=== PATIENT | female | born 1990 | race African-American/Black ===

== ENCOUNTER 2016-10-26 12:04 | Emergency (ER) | payer MEDICAID ==
--- NOTE | 2016-10-26 12:42 | ER Document Report ---
ED Medical Screen (RME) - General Stated Complaint: HEAD ACHE Notes: Patient is a 26-year-old female presents emergency Department complaining of soreness, coughing, headaches, nasal drainage, body aches symptoms started 3 days (-)influenza vaccine I have greeted and performed a rapid initial assessment of this patient. A comprehensive ED assessment and evaluation of the patient, analysis of test results and completion of the medical decision making process will be conducted by additional ED providers. TRAVEL OUTSIDE OF THE [place] IN LAST 30 DAYS: No - Related Data Allergies/Adverse Reactions: penicillin G benzathine [From Bicillin C-R] Allergy (Verified 09/07/16 08:25) penicillin G procaine [From Bicillin C-R] Allergy (Verified 09/07/16 08:25) Past Medical History Past Surgical History: Reports: Hx Section - Immunizations Immunizations up to date: Yes Hx Diphtheria, Pertussis, Tetanus Vaccination: Yes Physical Exam - Vital signs Vitals: Temp Pulse Resp BP Pulse Ox 97.5 F 72 18 107/62 100 10/26/16 12:38 10/26/16 12:38 10/26/16 12:38 10/26/16 12:38 10/26/16 12:38 Course - Vital Signs Vital signs: Temp Pulse Resp BP Pulse Ox 97.5 F 72 18 107/62 100 10/26/16 12:38 10/26/16 12:38 10/26/16 12:38 10/26/16 12:38 10/26/16 12:38
[2016-10-26 14:11] LABS: APPEARANCE,URINE SLIGHTLY-CLOUDY; BILIRUBIN,URINE NEGATIVE (NEGATIVE); GLUCOSE, URINE NEGATIVE (NEGATIVE); KETONES,URINE NEGATIVE (NEGATIVE); LEUKOCYTE ESTERASE,URINE NEGATIVE (NEGATIVE); NITRITE,URINE NEGATIVE (NEGATIVE); PROTEIN,URINE NEGATIVE (NEGATIVE); URINE SPECIFIC GRAVITY 1.028
--- NOTE | 2016-10-26 14:30 | ER Document Report ---
ED General - General Chief Complaint: Headache Stated Complaint: HEAD ACHE Mode of Arrival: Ambulatory Information source: Patient Notes: This 26-year-old female presents to the emergency room today stating she had a cough cold congestion generalized soreness for 2-3 days she is here in the company of her 2 children who both have similar symptoms. TRAVEL OUTSIDE OF THE [place] IN LAST 30 DAYS: No - HPI Onset: Other - 2-3 days - Related Data Allergies/Adverse Reactions: penicillin G benzathine [From Bicillin C-R] Allergy (Verified 09/07/16 08:25) penicillin G procaine [From Bicillin C-R] Allergy (Verified 09/07/16 08:25) Past Medical History - General Information source: Patient - Social History Smoking Status: Unknown if Ever Smoked Chew tobacco use (# tins/day): No Frequency of alcohol use: None Drug Abuse: None Family History: Reviewed & Not Pertinent Patient has suicidal ideation: No Patient has homicidal ideation: No Renal/ Medical History: Denies: Hx Peritoneal Dialysis Psychiatric Medical History: Reports: Hx Depression Past Surgical History: Reports: Hx Section - Immunizations Immunizations up to date: Yes Hx Diphtheria, Pertussis, Tetanus Vaccination: Yes Review of Systems - Review of Systems Constitutional: No symptoms reported EENT: No symptoms reported Cardiovascular: No symptoms reported Respiratory: No symptoms reported Gastrointestinal: No symptoms reported Genitourinary: No symptoms reported Female Genitourinary: No symptoms reported Musculoskeletal: No symptoms reported Skin: No symptoms reported Hematologic/Lymphatic: No symptoms reported Neurological/Psychological: No symptoms reported Physical Exam - Vital signs Vitals: Temp Pulse Resp BP Pulse Ox 97.5 F 72 18 107/62 100 10/26/16 12:38 10/26/16 12:38 10/26/16 12:38 10/26/16 12:38 10/26/16 12:38 Interpretation: Normal - General General appearance: Appears well, Alert - HEENT Head: Normocephalic, Atraumatic Eyes: Normal Pupils: PERRL - Respiratory Respiratory status: No respiratory distress Chest status: Nontender Breath sounds: Normal Chest palpation: Normal - Cardiovascular Rhythm: Regular Heart sounds: Normal auscultation Murmur: No - Abdominal Inspection: Normal Distension: No distension Bowel sounds: Normal Tenderness: Nontender Organomegaly: No organomegaly - Back Back: Normal, Nontender - Extremities General upper extremity: Normal inspection, Nontender, Normal color, Normal ROM , Normal temperature General lower extremity: Normal inspection, Nontender, Normal color, Normal ROM , Normal temperature, Normal weight bearing. No: Connie's sign - Neurological Neuro grossly intact: Yes Cognition: Normal Orientation: AAOx4 [place] Coma Scale Eye Opening: Spontaneous [place] Coma Scale Verbal: Oriented [place] Coma Scale Motor: Obeys Commands [place] Coma Scale Total: 15 Speech: Normal Motor strength normal: LUE, RUE, LLE, RLE Sensory: Normal - Psychological Associated symptoms: Normal affect, Normal mood - Skin Skin Temperature: Warm Skin Moisture: Dry Skin Color: Normal Course - Vital Signs Vital signs: Temp Pulse Resp BP Pulse Ox 97.5 F 72 18 107/62 100 10/26/16 12:38 10/26/16 12:38 10/26/16 12:38 10/26/16 12:38 10/26/16 12:38 - Laboratory Laboratory results interpreted by me: 10/26/16 13:45 Urine Urobilinogen 2.0 H 10/26/16 14:29 [facility] department flu swab and hCG were negative Discharge - Discharge Clinical Impression: Cough Fever Qualifiers: Encounter type: initial encounter Disposition: HOME, SELF-CARE Additional Instructions: Fever Fever is the body's reaction to infection. Fever can also occur with illnesses that create fever-producing substances in the body. By itself, fever is not harmful. It helps the body fight invading germs. We are more concerned with: (1) What's causing the fever? (2) How can we keep you more comfortable until the fever goes away? Early in an illness, symptoms are often so vague that a diagnosis can't be made. If the doctor hasn't identified a clear cause for your fever, you will probably develop new symptoms within the next two days. Contact the doctor if you develop severe worsening headache, rash, chest pain, cough with yellow or green sputum, difficulty breathing, abdominal pain, or other new symptoms. There is no reason to treat a fever if you're comfortable. If the fever is causing aches, headache, and fatigue, you can treat it with ibuprofen (Advil , Nuprin, etc) or acetaminophen (Tylenol). Follow the directions on the bottle. Get plenty of liquids (three quarts per day). Rest. Physical work or sports will raise the temperature higher and make you feel much worse. Dress lightly. If you're chilling, this means the temperature is trying to go higher. Take ibuprofen or acetaminophen. When you feel sweaty and "feverish" the temperature is coming down. If the fever doesn't go away within two days or if you become more ill, call the doctor or return at once for re-examination. Prescriptions: Benzonatate [Tessalon Perles 100 mg Capsule] 100 mg PO Q8HP PRN #40 capsule PRN Reason: Naproxen 500 mg PO BID #40 tablet
[2016-10-26 15:18] VITALS: BP 109/76
== END 2016-10-26 15:17 | disposition home or self-care (01) ==
LOC: ER 12:04
DX: R05 Cough (principal); R50.9 Fever, unspecified; R51 Headache; M79.1 Myalgia; Z88.0 Allergy status to penicillin
CPT/HCPCS: 81001; 81025; 87804; 99283

== ENCOUNTER 2017-02-16 09:51 | Emergency (ER) | payer MEDICAID ==
--- NOTE | 2017-02-16 11:10 | ER Document Report ---
HPI - HPI Patient complains to provider of: whole body pain Onset: Yesterday Onset/Duration: Persistent Quality of pain: Achy Severity: Severe Pain Level: 4 Context: Patient presents to the emergency department with multiple complaints including headache stomachache body sore ovaries hurt cramping and nobody heat or cold. Patient denies fever vomiting diarrhea. Denies pain with void denies vaginal discharge last bowel movement 2 days ago. Reports her whole body hurts when she walks. Reports it started last night. She reports she took Tylenol yesterday, nothing today. Denies past medical history of fibromyalgia. Patient looks nontoxic vital signs are stable. Associated Symptoms: None Exacerbated by: Walking Relieved by: Denies Similar symptoms previously: No Recently seen / treated by doctor: No - REPRODUCTIVE LMP: 02/14/17 Reproductive: DENIES: : - DERM Skin Color: Normal Past Medical History - General Information source: Patient Last Menstrual Period: 02/14/17 - Social History Smoking Status: Unknown if Ever Smoked Cigarette use (# per day): No Frequency of alcohol use: None Drug Abuse: None Occupation: [employer] Lives with: Family Family History: Reviewed & Not Pertinent Patient has suicidal ideation: No Patient has homicidal ideation: No Renal/ Medical History: Denies: Hx Peritoneal Dialysis GI Medical History: Reports: Hx Ulcer Psychiatric Medical History: Reports: Hx Depression Past Surgical History: Reports: Hx Section - Immunizations Immunizations up to date: Yes Hx Diphtheria, Pertussis, Tetanus Vaccination: Yes Vertical Provider Document - CONSTITUTIONAL Agree With Documented VS: Yes Exam Limitations: No Limitations General Appearance: WD/WN, No Apparent Distress - nontoxic looking - INFECTION CONTROL TRAVEL OUTSIDE OF THE [place] IN LAST 30 DAYS: No - HEENT HEENT: Atraumatic, Normocephalic, Pharyngeal Erythema. negative: Conjuctival Injection, Pharyngeal Exudate, Pharyngeal Tenderness, Tympanic Membrane Red, Tympanic Membrane Bulging - NECK Neck: Normal Inspection, Supple. negative: Lymphadenopathy-Left, Lymphadenopathy-Right - RESPIRATORY Respiratory: Breath Sounds Normal, No Respiratory Distress O2 Sat by Pulse Oximetry: 98 - CARDIOVASCULAR Cardiovascular: Regular Rate, Regular Rhythm - GI/ABDOMEN Gastrointestinal: Abdomen Soft, Abdomen Non-Tender - MUSCULOSKELETAL/EXTREMETIES Musculoskeletal/Extremeties: JONNIE APARICIO - NEURO Level of Consciousness: Awake, Alert, Appropriate Motor/Sensory: No Motor Deficit - DERM Integumentary: Warm, Dry, No Rash Course - Re-evaluation Re-evalutation: 02/16/17 11:15 Instructed on pending labs and moved to room 31 to await results 02/16/17 12:23 labs Unremarkable, patient instructed on all lab. Instructed to take Tylenol for the pain and Zofran for the nausea. She verbalized understanding to all instructions. - Vital Signs Vital signs: Temp Pulse Resp BP Pulse Ox 98.3 F 92 18 114/71 98 02/16/17 10:13 02/16/17 10:13 02/16/17 10:13 02/16/17 10:13 02/16/17 10:13 - Laboratory Result Diagrams: 02/16/17 11:42 02/16/17 11:42 Discharge - Discharge Clinical Impression: Whole body pain, Nausea Condition: Stable Disposition: HOME, SELF-CARE Instructions: Nausea or Vomiting, Nonspecific ([facility]), Antinausea Medication ([facility] ) Additional Instructions: *You have been evaluated for whole body pain, nausea *Take antinausea medication as prescribed *Take tyelnol as indicated for pain *Follow up with a primary care provider within one week for recheck *Return to ED for worsening condition, changes, needs, concerns Prescriptions: Ondansetron [Zofran Odt 4 mg Tablet] 1 - 2 tab PO Q4H #10 tabbrisa
[2017-02-16 11:52] LABS: ABSOLUTE LYMPHOCYTES (AUTO) 1.3 10^3/uL (0.5-4.7); ABSOLUTE MONOCYTES (AUTO) 0.8 10^3/uL (0.1-1.4); ABSOLUTE NEUT (AUTO) 8.7 10^3/uL (1.7-8.2); BASOPHILS % (AUTO) 0.3 % (0-2); EOSINOPHILS % (AUTO) 0.2 % (0-6); HEMATOCRIT 35.9 % (36.0-47.0); HEMOGLOBIN 11.5 g/dL (12.0-15.5); HGB HCT DIFFERENCE -1.4; LYMPHOCYTES % (AUTO) 11.5 % (13-45); MEAN CORPUSCULAR HEMOGLOBIN 25.8 pg (27.0-33.4); MEAN CORPUSCULAR VOLUME 81 fl (80-97); MONOCYTES % (AUTO) 7.6 % (3-13); RED BLOOD COUNT 4.46 10^6/uL (3.72-5.28); RED CELL DISTRIBUTION WIDTH 12.5 % (11.5-14.0); SEGMENTED NEUTROPHILS % (AUTO) 80.4 % (42-78); WHITE BLOOD COUNT 10.9 10^3/uL (4.0-10.5)
[2017-02-16 12:03] LABS: APPEARANCE,URINE CLEAR; BILIRUBIN,URINE NEGATIVE (NEGATIVE); GLUCOSE, URINE NEGATIVE (NEGATIVE); KETONES,URINE NEGATIVE (NEGATIVE); LEUKOCYTE ESTERASE,URINE NEGATIVE (NEGATIVE); NITRITE,URINE NEGATIVE (NEGATIVE); PROTEIN,URINE NEGATIVE (NEGATIVE); URINE SPECIFIC GRAVITY 1.015; UROBILINOGEN,URINE NEGATIVE mg/dL (<2.0)
[2017-02-16 12:10] LABS: ALANINE AMINOTRANSFERASE 27 U/L (9-52); ALBUMIN 4.5 g/dL (3.5-5.0); ALKALINE PHOSPHATASE 99 U/L (38-126); ANION GAP 12 (5-19); ASPARTATE AMINO TRANSFERASE 19 U/L (14-36); BILIRUBIN,DIRECT 0.3 mg/dL (0.0-0.4); BILIRUBIN,TOTAL 0.6 mg/dL (0.2-1.3); BLOOD UREA NITROGEN 8 mg/dL (7-20); CALCIUM 9.3 mg/dL (8.4-10.2); CARBON DIOXIDE 23 mmol/L (22-30); CHLORIDE 104 mmol/L (98-107); CREATININE RESULT 0.65 mg/dL (0.52-1.25); GLUCOSE 87 mg/dL (75-110); SODIUM 139.3 mmol/L (137-145); TOTAL PROTEIN 7.7 g/dL (6.3-8.2)
[2017-02-16 12:51] VITALS: BP 95/61
== END 2017-02-16 12:51 | disposition home or self-care (01) ==
LOC: ER 09:51
DX: R51 Headache (principal); R10.9 Unspecified abdominal pain; R11.0 Nausea
CPT/HCPCS: 36415; 80053; 81001; 81025; 85025; 87070; 87077; 87804; 87880; 99283

== ENCOUNTER 2017-03-16 23:58 | Emergency (ER) | payer MEDICAID ==
[2017-03-17 00:43] VITALS: BP 125/82
== END 2017-03-17 01:15 | disposition left against medical advice (07) ==
LOC: ER 23:58
DX: Z53.21 Procedure and treatment not carried out due to patient leaving prior to being seen by health care provider (principal)
CPT/HCPCS: 99284

== ENCOUNTER 2017-04-19 09:32 | Emergency (ER) | payer MEDICAID ==
--- NOTE | 2017-04-19 10:10 | ER Document Report ---
HPI - HPI Patient complains to provider of: Body aches and sore throat Onset: Other - Days Onset/Duration: Gradual Pain Level: 3 Context: 27-year-old complaining of sore throat, generalized body aches, some upper abdominal discomfort. No fever. No nausea vomiting or diarrhea. She is wondering if her symptoms are due to since she is 3 days late on her period. No dysuria frequency or urgency. No vaginal discharge. No vaginal bleeding. Associated Symptoms: None Exacerbated by: Denies Relieved by: Denies Similar symptoms previously: No Recently seen / treated by doctor: No - ROS ROS below otherwise negative: Yes Systems Reviewed and Negative: Yes All other systems reviewed and negative - CARDIOVASCULAR Cardiovascular: DENIES: Chest pain - REPRODUCTIVE Reproductive: DENIES: : - DERM Skin Color: Normal Past Medical History - General Information source: Patient - Social History Smoking Status: Never Smoker Frequency of alcohol use: None Drug Abuse: None Lives with: Spouse/Significant other Family History: Reviewed & Not Pertinent - Medical History Notes: , LMP march 17 Renal/ Medical History: Denies: Hx Peritoneal Dialysis GI Medical History: Reports: Hx Ulcer Psychiatric Medical History: Reports: Hx Depression Past Surgical History: Reports: Hx Section - Immunizations Immunizations up to date: Yes Hx Diphtheria, Pertussis, Tetanus Vaccination: Yes Vertical Provider Document - CONSTITUTIONAL Agree With Documented VS: Yes Exam Limitations: No Limitations - INFECTION CONTROL TRAVEL OUTSIDE OF THE [place] IN LAST 30 DAYS: No - HEENT HEENT: Normal ENT Exam, Normocephalic. negative: Conjuctival Injection, Pharyngeal Erythema, Tympanic Membrane Red - NECK Neck: Supple. negative: Lymphadenopathy-Left, Lymphadenopathy-Right - RESPIRATORY Respiratory: Breath Sounds Normal, No Respiratory Distress O2 Sat by Pulse Oximetry: 100 - CARDIOVASCULAR Cardiovascular: Regular Rate, Regular Rhythm - GI/ABDOMEN Gastrointestinal: Abdomen Soft, Abdomen Non-Tender, No Organomegaly - BACK Back: Normal Inspection. negative: CVA Tenderness-Right, CVA Tenderness-Left - MUSCULOSKELETAL/EXTREMETIES Musculoskeletal/Extremeties: JONNIE APARICIO - NEURO Level of Consciousness: Awake, Alert, Appropriate - DERM Integumentary: Warm, Dry, No Rash Course - Vital Signs Vital signs: Temp Pulse Resp BP Pulse Ox 98.9 F 82 16 105/61 100 04/19/17 09:46 04/19/17 09:46 04/19/17 09:46 04/19/17 09:46 04/19/17 09:46 Discharge - Discharge Clinical Impression: Early stage of , Myalgia, Sore throat Condition: Good Disposition: HOME, SELF-CARE Instructions: ([facility]), Myalagia (Muscle Pain) ([facility]), Sore Throat ([facility]) , [facility], [facility] ([facility]) Additional Instructions: See the health department for the Harn-gii-eegmhdn multivitamin daily Drink plenty of fluids Eat frequent meals No Motrin, alcohol, smoking Return to the emergency room for any cramping or bleeding Please complete the patient satisfaction survey if you get one, and return it.. If you do not receive a survey, then you can go to the [facility] website, [email or web address] and place your comments about your very good care. Thank you very much. It was a pleasure being your medical provider today.
[2017-04-19 10:52] LABS: APPEARANCE,URINE SLIGHTLY-CLOUDY; BILIRUBIN,URINE NEGATIVE (NEGATIVE); GLUCOSE, URINE NEGATIVE (NEGATIVE); KETONES,URINE 20 mg/dL (NEGATIVE); LEUKOCYTE ESTERASE,URINE NEGATIVE (NEGATIVE); NITRITE,URINE NEGATIVE (NEGATIVE); PROTEIN,URINE NEGATIVE (NEGATIVE); URINE SPECIFIC GRAVITY 1.029
[2017-04-19 11:44] VITALS: BP 118/78
== END 2017-04-19 11:40 | disposition home or self-care (01) ==
LOC: ER 09:32
DX: O99.519 Diseases of the respiratory system complicating pregnancy, unspecified trimester (principal); J02.9 Acute pharyngitis, unspecified; O99.89 Other specified diseases and conditions complicating pregnancy, childbirth and the puerperium; M79.1 Myalgia; O26.899 Other specified pregnancy related conditions, unspecified trimester; R19.8 Other specified symptoms and signs involving the digestive system and abdomen; Z3A.00 Weeks of gestation of pregnancy not specified
CPT/HCPCS: 81001; 81025; 87070; 87086; 87880; 99283

== ENCOUNTER 2017-04-20 15:58 | Emergency (ER) | payer MEDICAID ==
--- NOTE | 2017-04-20 16:20 | ER Document Report ---
ED Medical Screen (RME) - General Chief Complaint: Vag Bleeding, +preg <12wks Stated Complaint: VAGINAL BLEEDING AND CRAMPING Time Seen by Provider: 04/20/17 16:12 Notes: Patient states that she was told yesterday that she is . Today she began with abdominal cramping and bleeding. She states that her last period was 1 month ago. TRAVEL OUTSIDE OF THE [place] IN LAST 30 DAYS: No - Related Data Allergies/Adverse Reactions: penicillin G benzathine [From Bicillin C-R] Allergy (Verified 04/20/17 16:01) penicillin G procaine [From Bicillin C-R] Allergy (Verified 04/20/17 16:01) Past Medical History - General Last Menstrual Period: 03/17/17 Renal/ Medical History: Denies: Hx Peritoneal Dialysis GI Medical History: Reports: Hx Ulcer Psychiatric Medical History: Reports: Hx Depression Past Surgical History: Reports: Hx Section - Immunizations Immunizations up to date: Yes Hx Diphtheria, Pertussis, Tetanus Vaccination: Yes Physical Exam - Vital signs Vitals: Temp Pulse Resp BP Pulse Ox 98.5 F 85 16 110/68 100 04/20/17 16:01 04/20/17 16:01 04/20/17 16:01 04/20/17 16:01 04/20/17 16:01 Course - Vital Signs Vital signs: Temp Pulse Resp BP Pulse Ox 98.5 F 85 16 110/68 100 04/20/17 16:01 04/20/17 16:01 04/20/17 16:01 04/20/17 16:01 04/20/17 16:01
[2017-04-20 16:42] LABS: ABSOLUTE EOSINOPHILS # (AUTO) 0.1 10^3/uL (0.0-0.6); ABSOLUTE LYMPHOCYTES (AUTO) 1.4 10^3/uL (0.5-4.7); ABSOLUTE MONOCYTES (AUTO) 0.7 10^3/uL (0.1-1.4); BASOPHILS % (AUTO) 0.3 % (0-2); EOSINOPHILS % (AUTO) 1.8 % (0-6); HEMATOCRIT 36.2 % (36.0-47.0); HEMOGLOBIN 11.7 g/dL (12.0-15.5); HGB HCT DIFFERENCE -1.1; LYMPHOCYTES % (AUTO) 32.9 % (13-45); MEAN CORPUSCULAR HEMOGLOBIN 26.7 pg (27.0-33.4); MEAN CORPUSCULAR HGB CONC 32.2 g/dL (32.0-36.0); MEAN CORPUSCULAR VOLUME 83 fl (80-97); MONOCYTES % (AUTO) 16.7 % (3-13); RED BLOOD COUNT 4.37 10^6/uL (3.72-5.28); SEGMENTED NEUTROPHILS % (AUTO) 48.3 % (42-78); WHITE BLOOD COUNT 4.1 10^3/uL (4.0-10.5)
[2017-04-20 16:49] LABS: ANION GAP 13 (5-19); BLOOD UREA NITROGEN 13 mg/dL (7-20); CALCIUM 9.3 mg/dL (8.4-10.2); CARBON DIOXIDE 25 mmol/L (22-30); CHLORIDE 105 mmol/L (98-107); CREATININE RESULT 0.71 mg/dL (0.52-1.25); GLUCOSE 83 mg/dL (75-110); POTASSIUM 3.5 mmol/L (3.6-5.0); SODIUM 142.8 mmol/L (137-145)
--- NOTE | 2017-04-20 18:27 | RADIOLOGY REPORT (SQ) ---
EXAM DESCRIPTION: U/S OB TRANSVAGINAL W/O DOP COMPLETED DATE/TIME: 04/20/2017 6:03 pm REASON FOR STUDY: bleeding/pain/preg COMPARISON: None. TECHNIQUE: Transvaginal static and realtime grayscale images acquired of the pelvis. Additional rancho cted spectral and color Doppler images recorded. All images stored on PACs. bHC.[id number] LIMITATIONS: None. FINDINGS: UTERUS: No masses. No anomalies. GESTATIONAL SAC: Not identified YOLK SAC: Not identified POLE: Not identified RIGHT ADNEXA: Normal ovary with normal vascular flow. No adnexal free fluid. Small paraovarian cyst is identified measuring 1.0 x 1.0 x 0.8 cm LEFT ADNEXA: Normal ovary with normal vascular flow. No adnexal free fluid. No adnexal masses. FREE FLUID: None. OTHER: No other significant finding. IMPRESSION: No IUP is identified. BHCG LEVEL APPROPRIATE FOR ENDOMETRIAL FINDINGS. CONSIDER F/U BHCG AND/OR ULTRASOUND FOR VERIFICATION AND TO EXCLUDE ECTOPIC . Trimester of : First - 0 to 13 weeks. TECHNICAL DOCUMENTATION: JOB ID: [id number] [employer]- All Rights Reserved
--- NOTE | 2017-04-20 18:36 | ER Document Report ---
ED General - General Chief Complaint: Vag Bleeding, +preg <12wks Stated Complaint: VAGINAL BLEEDING AND CRAMPING Time Seen by Provider: 04/20/17 16:12 Mode of Arrival: Ambulatory Information source: Patient Notes: Patient states that her period was late so she came in yesterday and was diagnosed as . Today she began have some mild cramping and some vaginal bleeding. So she return for evaluation. Patient states the pain is mild and bilateral. It does radiate to her back. Nothing makes it better or worse. It is intermittent. She seen no clots or tissue. She is not lightheaded or dizzy. TRAVEL OUTSIDE OF THE [place] IN LAST 30 DAYS: No - Related Data Allergies/Adverse Reactions: penicillin G benzathine [From Bicillin C-R] Allergy (Verified 04/20/17 16:01) penicillin G procaine [From Bicillin C-R] Allergy (Verified 04/20/17 16:01) Past Medical History - General Last Menstrual Period: 03/17/17 - Social History Smoking Status: Never Smoker Frequency of alcohol use: Occasional Drug Abuse: None Family History: Reviewed & Not Pertinent Patient has suicidal ideation: No Patient has homicidal ideation: No Renal/ Medical History: Denies: Hx Peritoneal Dialysis GI Medical History: Reports: Hx Ulcer Psychiatric Medical History: Reports: Hx Depression Past Surgical History: Reports: Hx Section - Immunizations Immunizations up to date: Yes Hx Diphtheria, Pertussis, Tetanus Vaccination: Yes Review of Systems - Review of Systems Constitutional: denies: Chills, Fever Cardiovascular: denies: Chest pain, Dyspnea Respiratory: denies: Cough, Short of breath Gastrointestinal: Abdominal pain. denies: Diarrhea, Vomiting -: Yes All other systems reviewed and negative Physical Exam - Vital signs Vitals: Temp Pulse Resp BP Pulse Ox 98.5 F 85 16 110/68 100 04/20/17 16:01 04/20/17 16:01 04/20/17 16:01 04/20/17 16:01 04/20/17 16:01 Interpretation: Normal - General General appearance: Appears well, Alert - HEENT Head: Normocephalic, Atraumatic Eyes: Normal Pupils: PERRL - Respiratory Respiratory status: No respiratory distress Chest status: Nontender Breath sounds: Normal Chest palpation: Normal - Cardiovascular Rhythm: Regular Heart sounds: Normal auscultation Murmur: No - Abdominal Inspection: Normal Distension: No distension Bowel sounds: Normal Tenderness: Nontender Organomegaly: No organomegaly - Back Back: Normal, Nontender - Extremities General upper extremity: Normal inspection, Nontender, Normal color, Normal ROM , Normal temperature General lower extremity: Normal inspection, Nontender, Normal color, Normal ROM , Normal temperature, Normal weight bearing. No: Connie's sign - Neurological Neuro grossly intact: Yes Cognition: Normal Orientation: AAOx4 [place] Coma Scale Eye Opening: Spontaneous Tamara Coma Scale Verbal: Oriented [place] Coma Scale Motor: Obeys Commands Tamara Coma Scale Total: 15 Speech: Normal Motor strength normal: LUE, RUE, LLE, RLE Sensory: Normal - Psychological Associated symptoms: Normal affect, Normal mood - Skin Skin Temperature: Warm Skin Moisture: Dry Skin Color: Normal Course - Vital Signs Vital signs: Temp Pulse Resp BP Pulse Ox 98.5 F 85 16 110/68 100 04/20/17 16:01 04/20/17 16:01 04/20/17 16:01 04/20/17 16:01 04/20/17 16:01 - Laboratory Result Diagrams: 04/20/17 16:20 04/20/17 16:20 Laboratory results interpreted by me: 04/20/17 04/20/17 16:20 16:20 Hgb 11.7 L MCH 26.7 L Plt Count 135 L Monocytes % 16.7 H Potassium 3.5 L Beta HCG, Quant 14.81 H - Diagnostic Test Radiology reviewed: Image reviewed, Reports reviewed Radiology results interpreted by me: 04/20/17 18:35 Ultrasound shows no evidence of intrauterine and no evidence of ectopic. The findings are consistent with her very low beta of 14. Discharge - Discharge Clinical Impression: Incomplete , Early stage of Disposition: HOME, SELF-CARE Instructions: Miscarriage ([facility]) Prescriptions: Hydrocodone/Acetaminophen [Tennga 5-325 mg Tablet] 1 tab PO Q6 PRN #7 tablet PRN Reason: Referrals: MINOR DEAN MD [ACTIVE STAFF] - Follow up in 3-5 days
[2017-04-20 18:59] VITALS: BP 113/75
== END 2017-04-20 18:58 | disposition home or self-care (01) ==
LOC: ER 15:58
DX: O03.4 Incomplete spontaneous abortion without complication (principal); R10.9 Unspecified abdominal pain; M54.9 Dorsalgia, unspecified
CPT/HCPCS: 36415; 76817; 80048; 84702; 85025; 86900; 86901; 99284

== ENCOUNTER 2017-05-27 14:39 | Emergency (ER) | payer MEDICAID ==
[2017-05-27] MEDS ORDERED: NORMAL SALINE 1000 ML 1,000 ML IV PRN (15:31)
--- NOTE | 2017-05-27 15:33 | ER Document Report ---
ED Medical Screen (RME) - General Chief Complaint: Abdominal Cramping Stated Complaint: ABDOMINAL PAIN Time Seen by Provider: 05/27/17 15:31 Mode of Arrival: Ambulatory Information source: Patient Notes: This is a 27-year-old female 4 para 2. Patient reports being told she was 6 weeks in the clinic. Patient denies vaginal bleeding. Patient does state that she had a miscarriage April 18. Presents to the emergency room with dizziness, low back and abdomen cramping TRAVEL OUTSIDE OF THE [place] IN LAST 30 DAYS: No - Related Data Allergies/Adverse Reactions: penicillin G benzathine [From Bicillin C-R] Allergy (Verified 05/27/17 14:47) penicillin G procaine [From Bicillin C-R] Allergy (Verified 05/27/17 14:47) Past Medical History Renal/ Medical History: Denies: Hx Peritoneal Dialysis GI Medical History: Reports: Hx Ulcer Psychiatric Medical History: Reports: Hx Depression Past Surgical History: Reports: Hx Section - Immunizations Immunizations up to date: Yes Hx Diphtheria, Pertussis, Tetanus Vaccination: Yes Physical Exam - Vital signs Vitals: Temp Pulse Resp BP Pulse Ox 98.2 F 76 20 114/76 100 05/27/17 14:47 05/27/17 14:47 05/27/17 14:47 05/27/17 14:47 05/27/17 14:47 Course - Vital Signs Vital signs: Temp Pulse Resp BP Pulse Ox 98.2 F 76 20 114/76 100 05/27/17 14:47 05/27/17 14:47 05/27/17 14:47 05/27/17 14:47 05/27/17 14:47
[2017-05-27 15:53] LABS: ABSOLUTE EOSINOPHILS # (AUTO) 0.1 10^3/uL (0.0-0.6); ABSOLUTE LYMPHOCYTES (AUTO) 2.8 10^3/uL (0.5-4.7); ABSOLUTE MONOCYTES (AUTO) 0.7 10^3/uL (0.1-1.4); ABSOLUTE NEUT (AUTO) 4.2 10^3/uL (1.7-8.2); BASOPHILS % (AUTO) 0.4 % (0-2); EOSINOPHILS % (AUTO) 1.1 % (0-6); HEMATOCRIT 36.4 % (36.0-47.0); HEMOGLOBIN 11.9 g/dL (12.0-15.5); HGB HCT DIFFERENCE -0.7; LYMPHOCYTES % (AUTO) 35.9 % (13-45); MEAN CORPUSCULAR HEMOGLOBIN 26.8 pg (27.0-33.4); MEAN CORPUSCULAR HGB CONC 32.8 g/dL (32.0-36.0); MEAN CORPUSCULAR VOLUME 82 fl (80-97); MONOCYTES % (AUTO) 8.8 % (3-13); RED BLOOD COUNT 4.46 10^6/uL (3.72-5.28); RED CELL DISTRIBUTION WIDTH 14.3 % (11.5-14.0); SEGMENTED NEUTROPHILS % (AUTO) 53.8 % (42-78); WHITE BLOOD COUNT 7.7 10^3/uL (4.0-10.5)
[2017-05-27 16:14] LABS: ALANINE AMINOTRANSFERASE 16 U/L (9-52); ALBUMIN 4.7 g/dL (3.5-5.0); ALKALINE PHOSPHATASE 95 U/L (38-126); ANION GAP 12 (5-19); ASPARTATE AMINO TRANSFERASE 21 U/L (14-36); BILIRUBIN,DIRECT 0.3 mg/dL (0.0-0.4); BILIRUBIN,TOTAL 0.4 mg/dL (0.2-1.3); BLOOD UREA NITROGEN 16 mg/dL (7-20); CARBON DIOXIDE 21 mmol/L (22-30); CHLORIDE 106 mmol/L (98-107); CREATININE RESULT 0.64 mg/dL (0.52-1.25); GLUCOSE 75 mg/dL (75-110); POTASSIUM 4.5 mmol/L (3.6-5.0); SODIUM 139.4 mmol/L (137-145); TOTAL PROTEIN 8.1 g/dL (6.3-8.2)
--- NOTE | 2017-05-27 16:23 | ER Document Report ---
ED GI/ - General Mode of Arrival: Ambulatory TRAVEL OUTSIDE OF THE [place] IN LAST 30 DAYS: No <ORTEGA CAMP - Last Filed: 05/27/17 16:47> <LYSSA GARNICA - Last Filed: 05/27/17 19:30> - General Chief Complaint: Abdominal Cramping Stated Complaint: ABDOMINAL PAIN Time Seen by Provider: 05/27/17 15:31 - HPI Notes: Patient is a 27 year old female presenting to the emergency department for suprapubic abdominal cramping, low back pain, and dizziness x 2-3 days. Patient is A1. Patient states she had a miscarriage on 04/18/2017. Patient denies any vaginal bleeding. Patient had a positive urine test on 04/19/2017. Patient had vaginal bleeding on 04/20/2017 and was seen in the emergency department with a 14.8 beta hCG Quant. (ORTEGA CAMP) - Related Data Allergies/Adverse Reactions: penicillin G benzathine [From Bicillin C-R] Allergy (Verified 05/27/17 14:47) penicillin G procaine [From Bicillin C-R] Allergy (Verified 05/27/17 14:47) Home Medications: Current Home Medications Vit #116/Iron/FA/Dha [ Formula-Dha Softgel] 1 each PO DAILY [History] Past Medical History - General Information source: Patient - Social History Smoking Status: Never Smoker Chew tobacco use (# tins/day): No Frequency of alcohol use: None Drug Abuse: None Family History: None Patient has suicidal ideation: No Patient has homicidal ideation: No GI Medical History: Reports: Hx Ulcer Psychiatric Medical History: Reports: Hx Depression Past Surgical History: Reports: Hx Section - Immunizations Immunizations up to date: Yes Hx Diphtheria, Pertussis, Tetanus Vaccination: Yes <ORTEGA CAMP - Last Filed: 05/27/17 16:47> Review of Systems - Review of Systems Constitutional: No symptoms reported EENT: No symptoms reported Cardiovascular: See HPI, Dizziness Respiratory: No symptoms reported Gastrointestinal: See HPI, Abdominal pain Genitourinary: No symptoms reported Female Genitourinary: See HPI, . denies: Vaginal bleeding Musculoskeletal: No symptoms reported Skin: No symptoms reported Hematologic/Lymphatic: No symptoms reported Neurological/Psychological: No symptoms reported -: Yes All other systems reviewed and negative <ORTEGA CAMP - Last Filed: 05/27/17 16:47> Physical Exam - Vital signs Interpretation: Normal <ORTEGA CAMP - Last Filed: 05/27/17 16:47> <NAHUNLYSSA Jay - Last Filed: 05/27/17 19:30> - Vital signs Vitals: Temp Pulse Resp BP Pulse Ox 98.2 F 76 20 114/76 100 05/27/17 14:47 05/27/17 14:47 05/27/17 14:47 05/27/17 14:47 05/27/17 14:47 - Notes Notes: GENERAL: Alert, interacts well. No acute distress. HEAD: Normocephalic, atraumatic. EYES: Appear normal. Pupils equal, round, and reactive to light. ENT: Moist mucus membranes, tongue midline. NECK: Full range of motion. Supple. Trachea midline. LUNGS: Clear to auscultation bilaterally, no wheezes, rales, or rhonchi. No respiratory distress. HEART: Regular rate and rhythm. No murmurs, gallops, or rubs. ABDOMEN: Soft, non-tender. Non-distended. Normal bowel sounds. EXTREMITIES: Moves all 4 extremities spontaneously. Normal strength. No edema. NEUROLOGICAL: Alert and oriented x3. Normal speech. No focal neurological deficits. GSC 15. PSYCH: Normal affect, normal mood. SKIN: Warm, dry, normal turgor. No rashes or lesions noted. (ORTEGA CAMP) Course - Laboratory Result Diagrams: 05/27/17 15:40 05/27/17 15:40 <ORTEGA CAMP - Last Filed: 05/27/17 16:47> - Laboratory Result Diagrams: 05/27/17 15:40 05/27/17 15:40 - Diagnostic Test Radiology reviewed: Reports reviewed - Ultrasound shows possibly a gestational sac in endometrial canal which would measure about 5 weeks. No pole, no heart rate. <LYSSA GARNICA - Last Filed: 05/27/17 19:30> - Vital Signs Vital signs: Temp Pulse Resp BP Pulse Ox 98.8 F 85 16 103/66 100 05/27/17 18:36 05/27/17 18:36 05/27/17 18:36 05/27/17 18:36 05/27/17 18:36 - Laboratory Laboratory results interpreted by me: 05/27/17 05/27/17 05/27/17 15:40 15:40 15:40 Hgb 11.9 L MCH 26.8 L RDW 14.3 H Carbon Dioxide 21 L Beta HCG, Quant 1154.90 H Urine Ascorbic Acid 20 H Discharge <ORTEGA CAMP - Last Filed: 05/27/17 16:47> <LYSSA GARNICA - Last Filed: 05/27/17 19:30> - Discharge Clinical Impression: Early stage of , Pelvic cramping Condition: Stable Disposition: HOME, SELF-CARE Additional Instructions: Your ultrasound shows what appears to be in the uterus. It is too early to tell if it is a viable . Your hormone level was 1,154 which is consistent with a very early . Your urine is quite concentrated, this means you should be drinking a lot more fluids. Oftentimes the cramping associated with goes away when you hydrate well. You should drink plenty of fluids and rest. Follow-up with [facility] tomorrow for recheck. RETURN TO THE EMERGENCY ROOM IF ANY NEW OR WORSENING SYMPTOMS. Scribe Attestation: 05/27/17 18:10 I personally performed the services described in the documentation, reviewed and edited the documentation which was dictated to the scribe in my presence, and it accurately records my words and actions. (LYSSA GARNICA) Scribe Documentation - Scribe Written by Peter:: Peter David, 05/27/2017 16:50 acting as scribe for :: Nahun <ORTEGA CAMP - Last Filed: 05/27/17 16:47>
[2017-05-27 16:53] LABS: APPEARANCE,URINE SLIGHTLY-CLOUDY; BILIRUBIN,URINE NEGATIVE (NEGATIVE); GLUCOSE, URINE NEGATIVE (NEGATIVE); KETONES,URINE NEGATIVE (NEGATIVE); LEUKOCYTE ESTERASE,URINE NEGATIVE (NEGATIVE); NITRITE,URINE NEGATIVE (NEGATIVE); PROTEIN,URINE NEGATIVE (NEGATIVE); UROBILINOGEN,URINE NEGATIVE mg/dL (<2.0)
--- NOTE | 2017-05-27 18:45 | RADIOLOGY REPORT (SQ) ---
EXAM DESCRIPTION: U/S OB TRANSVAGINAL W/O DOP COMPLETED DATE/TIME: 05/27/2017 6:24 pm REASON FOR STUDY: cramping reports 6weeks preg COMPARISON: 04/20/2017 TECHNIQUE: Transabdominal static and realtime grayscale images acquired of the pelvis. Additional se lected spectral and color Doppler images recorded. All images stored on PACs. [facility] [place] LIMITATIONS: None. FINDINGS: FETUS: There may be a small gestational sac within the endometrial canal. No pole or heart motion seen. EGA: 5 weeks based on gestational sac size. MAGED: 01/27/2018 FHR: Not seen beats per minute. SUBCHORIONIC BLEED: No SIZE OF BLEED: Not applicable. UTERUS: 8 x 5.8 x 3.9 cm. No masses or anomalies. CERVICAL LENGTH: 2.5 cm. Closed. RIGHT ADNEXA: 3.2 x 2 x 1.9 cm. There is a 1.9 x 1.8 x 1.8 cm ovarian cyst, possibly corpus luteum c yst. No adnexal free fluid. No adnexal masses. LEFT ADNEXA: 3.1 x 1.7 x 1.1 cm. Normal appearing ovary. No adnexal free fluid. No adnexal masses. FREE FLUID: None. OTHER: No other significant finding. IMPRESSION: Possible 5 weeks gestation based upon gestational sac size. pole was not seen. F etal heart motion was not seen. Follow-up as clinically indicated. Trimester of : First - 0 to 13 weeks. TECHNICAL DOCUMENTATION: JOB ID: [id number] [employer]- All Rights Reserved
[2017-05-27 19:43] VITALS: BP 108/67
== END 2017-05-27 19:47 | disposition home or self-care (01) ==
LOC: ER 14:39
DX: R10.2 Pelvic and perineal pain (principal); R10.9 Unspecified abdominal pain; M54.5 Low back pain; R42 Dizziness and giddiness; Z3A.01 Less than 8 weeks gestation of pregnancy
CPT/HCPCS: 99284; 96360; 36415; 84702; 85025; 80053; 81001; 76817; J7030

== ENCOUNTER 2017-06-03 12:35 | Emergency (ER) | payer MEDICAID ==
[2017-06-03] MEDS ORDERED: ACETAMINOPHEN 325 MG TABLET PO ONE (13:28)
[2017-06-03] MEDS ORDERED: LORATADINE 10 MG TABLET PO ONE (13:28)
--- NOTE | 2017-06-03 13:31 | ER Document Report ---
ED ENT - General Chief Complaint: Sore Throat Stated Complaint: SORE THROAT Time Seen by Provider: 06/03/17 13:08 Mode of Arrival: Ambulatory Information source: Patient Notes: 27-year-old female presents to ED for complaint of sore throat that started yesterday with body aches runny nose difficulty swallowing. TRAVEL OUTSIDE OF THE [place] IN LAST 30 DAYS: No - HPI Patient complains to provider of: Nose problem, Throat problem Onset: Yesterday Onset/Duration: Gradual Quality of pain: Achy, Sharp Severity: Mild Pain Level: 2 Context: Recent Illness Associated symptoms: Runny nose, Sinus drainage, Sore throat Similar symptoms previously: Yes Recently seen / treated by doctor: No - Related Data Allergies/Adverse Reactions: penicillin G benzathine [From Bicillin C-R] Allergy (Verified 06/03/17 12:37) penicillin G procaine [From Bicillin C-R] Allergy (Verified 06/03/17 12:37) Past Medical History - General Information source: Patient - Social History Smoking Status: Former Smoker Cigarette use (# per day): No Chew tobacco use (# tins/day): No Smoking Education Provided: No Frequency of alcohol use: None Drug Abuse: None Occupation: None Lives with: Family Family History: DM, Hyperlipidemia, Hypertension, Malignancy, Thyroid Disfunction Patient has suicidal ideation: No Patient has homicidal ideation: No - Past Medical History Cardiac Medical History: Reports: None Pulmonary Medical History: Reports: None EENT Medical History: Reports: None Neurological Medical History: Reports: None Endocrine Medical History: Reports: None Renal/ Medical History: Reports: None Malignancy Medical History: Reports: None GI Medical History: Reports: Hx Ulcer Musculoskeltal Medical History: Reports None Skin Medical History: Reports None Psychiatric Medical History: Reports: Hx Depression Traumatic Medical History: Reports: None Infectious Medical History: Reports: None Past Surgical History: Reports: Hx Oral Surgery - Immunizations Immunizations up to date: Yes Hx Diphtheria, Pertussis, Tetanus Vaccination: Yes Review of Systems - Review of Systems Constitutional: Recent illness. denies: Fever EENT: Nose congestion, Nose discharge, Sinus discharge Cardiovascular: No symptoms reported Respiratory: No symptoms reported Gastrointestinal: No symptoms reported Genitourinary: No symptoms reported Female Genitourinary: No symptoms reported Musculoskeletal: No symptoms reported Skin: No symptoms reported Hematologic/Lymphatic: No symptoms reported Neurological/Psychological: No symptoms reported Physical Exam - Vital signs Vitals: Temp Pulse Resp BP Pulse Ox 98.7 F 83 14 116/80 100 06/03/17 12:38 06/03/17 12:38 06/03/17 12:38 06/03/17 12:38 06/03/17 12:38 Interpretation: Normal - General General appearance: Appears well, Alert - HEENT Head: Normocephalic, Atraumatic Eyes: Normal Pupils: PERRL Ears: Normal External canal: Normal Tympanic membrane: Normal Sinus: Normal Nasal: Purulent discharge, Swelling Mouth/Lips: Normal Mucous membranes: Normal Pharynx: Post nasal drainage. No: Erythema, Exudate, Peritonsillar abscess, Tonsillar hypertrophy, Uvular edema, Potential airway comprom. Neck: Normal - Respiratory Respiratory status: No respiratory distress Chest status: Nontender Breath sounds: Normal Chest palpation: Normal - Cardiovascular Rhythm: Regular Heart sounds: Normal auscultation Murmur: No - Abdominal Inspection: Normal Distension: No distension Bowel sounds: Normal Tenderness: Nontender Organomegaly: No organomegaly - Back Back: Normal, Nontender - Extremities General upper extremity: Normal inspection, Nontender, Normal color, Normal ROM , Normal temperature General lower extremity: Normal inspection, Nontender, Normal color, Normal ROM , Normal temperature, Normal weight bearing. No: Connie's sign - Neurological Neuro grossly intact: Yes Cognition: Normal Orientation: AAOx4 Tamara Coma Scale Eye Opening: Spontaneous Salol Coma Scale Verbal: Oriented Salol Coma Scale Motor: Obeys Commands Tamara Coma Scale Total: 15 Speech: Normal Motor strength normal: LUE, RUE, LLE, RLE Sensory: Normal - Psychological Associated symptoms: Normal affect, Normal mood - Skin Skin Temperature: Warm Skin Moisture: Dry Skin Color: Normal Course - Re-evaluation Re-evalutation: 06/03/17 15:47 Assessment consistent with upper respiratory infection with a viral sore throat. Patient discharged home to follow-up with her primary doctor. - Vital Signs Vital signs: Temp Pulse Resp BP Pulse Ox 98.5 F 80 14 110/75 100 06/03/17 13:40 06/03/17 13:40 06/03/17 13:40 06/03/17 13:40 06/03/17 13:40 Discharge - Discharge Clinical Impression: Sore throat (viral) URI (upper respiratory infection) Qualifiers: URI type: unspecified URI Qualified Code(s): J06.9 - Acute upper respiratory infection, unspecified Condition: Stable Disposition: HOME, SELF-CARE Instructions: Family Physicians / Practices Additional Instructions: UPPER RESPIRATORY ILLNESS: You have a viral infection of the respiratory passages -- a "cold." This common infection causes nasal congestion, drainage, and often sore throat and cough. It is highly contagious. The disease usually lasts about 10 to 14 days. There is no "cure" for the viral infection -- it must run its course. If there is a complication, such as bacterial infection in the nose, sinuses, middle ear, or bronchial tubes, antibiotics may be required. The antibiotics won't affect the virus. Drink plenty of fluids. A humidifier may help. An expectorant medication or decongestant may make you more comfortable. Use acetaminophen or ibuprofen for fever or aches. See the doctor if fever persists over two days, if there is any significant worsening of your symptoms, or if you simply fail to improve as expected. You can take Claritin while you are it is a category B which is safe in COUGH-SUPPRESSANT & EXPECTORANT MEDICATION: You are to use a cough medication as needed for relief of symptoms. This medicine is a combination of an expectorant (to make the mucous thinner and more easily "coughed up") and a cough suppressant (to reduce the frequency of coughing). The cough-suppressant medicine is related to narcotics. You may experience mild nausea and sleepiness. Some patients who are very sensitive to narcotics may have stomach pain from this medicine. Taking the medicine with food reduces these side effects. Do not drive or work with machinery until you know how this medicine affects you. The expectorant should have no side effects. Iodine-containing expectorants (such as organidin) should not be taken by persons with active thyroid disease unless approved by your doctor. Call the doctor if you develop shortness of breath, hives, rash, itching, lightheadedness, or severe nausea and vomiting. USE OF ACETAMINOPHEN (Tylenol): Acetaminophen may be taken for pain relief or fever control. It's much safer than aspirin, offering a wider range of "safe" dosages. It is safe during . Some brand names are Tylenol, Panadol, Datril, Anacin 3, Tempra, and Liquiprin. Acetaminophen can be repeated every four hours. The following are maximum recommended dosages: >89 pounds or adults 650 mg to 900 mg Acetaminophen can be repeated every four hours. Maximum dose not to exceed 4000 mg a day. Please use salt and soda solution for gargling 2-3 times a day and use nasal saline spray at least 2-3 times a day to help with your symptoms. 1 quart of water 1 tablespoon of salt 1 teaspoon of baking soda Mixed 3 ingredients together and boil for 1 minute Placed in a covered quart jar Use 1/2 ounce of cold solution to gargle 3 times a day FOLLOW-UP CARE: If you have been referred to a physician for follow-up care, call the physician s office for an appointment as you were instructed or within the next two days. If you experience worsening or a significant change in your symptoms, notify the physician immediately or return to the Emergency Department at any time for re-evaluation.
[2017-06-03 13:41] VITALS: BP 110/75
== END 2017-06-03 13:41 | disposition home or self-care (01) ==
LOC: ER 12:35
DX: J06.9 Acute upper respiratory infection, unspecified (principal); J02.9 Acute pharyngitis, unspecified; M79.1 Myalgia; R09.89 Other specified symptoms and signs involving the circulatory and respiratory systems; R13.10 Dysphagia, unspecified; Z87.891 Personal history of nicotine dependence
CPT/HCPCS: 99282; J3490 ×2

== ENCOUNTER 2017-09-07 14:17 | Emergency (ER) | payer MEDICAID ==
[2017-09-07] MEDS ORDERED: METOCLOPRAMIDE HCL 10 MG TABLET PO ONE (15:09)
[2017-09-07 15:43] LABS: ABSOLUTE LYMPHOCYTES (AUTO) 0.8 10^3/uL (0.5-4.7); ABSOLUTE MONOCYTES (AUTO) 0.5 10^3/uL (0.1-1.4); ABSOLUTE NEUT (AUTO) 8.7 10^3/uL (1.7-8.2); BASOPHILS % (AUTO) 0.1 % (0-2); HEMATOCRIT 33.5 % (36.0-47.0); HEMOGLOBIN 11.1 g/dL (12.0-15.5); HGB HCT DIFFERENCE -0.2; LYMPHOCYTES % (AUTO) 7.8 % (13-45); MEAN CORPUSCULAR HEMOGLOBIN 27.7 pg (27.0-33.4); MEAN CORPUSCULAR HGB CONC 33.1 g/dL (32.0-36.0); MEAN CORPUSCULAR VOLUME 83 fl (80-97); MONOCYTES % (AUTO) 4.8 % (3-13); RED BLOOD COUNT 4.02 10^6/uL (3.72-5.28); SEGMENTED NEUTROPHILS % (AUTO) 87.3 % (42-78)
[2017-09-07] MEDS ORDERED: METOCLOPRAMIDE HCL INJ/PF 10 MG/2 ML SDV IM ONE (15:46)
[2017-09-07 15:55] LABS: APPEARANCE,URINE SLIGHTLY-CLOUDY; BILIRUBIN,URINE NEGATIVE (NEGATIVE); GLUCOSE, URINE NEGATIVE (NEGATIVE); KETONES,URINE 80 mg/dL (NEGATIVE); LEUKOCYTE ESTERASE,URINE TRACE (NEGATIVE); NITRITE,URINE NEGATIVE (NEGATIVE); PROTEIN,URINE NEGATIVE (NEGATIVE); URINE SPECIFIC GRAVITY 1.024; UROBILINOGEN,URINE NEGATIVE mg/dL (<2.0)
[2017-09-07 16:00] LABS: ALANINE AMINOTRANSFERASE 26 U/L (9-52); ALKALINE PHOSPHATASE 88 U/L (38-126); ANION GAP 16 (5-19); ASPARTATE AMINO TRANSFERASE 20 U/L (14-36); BILIRUBIN,DIRECT 0.1 mg/dL (0.0-0.4); BILIRUBIN,TOTAL 0.4 mg/dL (0.2-1.3); BLOOD UREA NITROGEN 10 mg/dL (7-20); CALCIUM 9.2 mg/dL (8.4-10.2); CARBON DIOXIDE 18 mmol/L (22-30); CHLORIDE 105 mmol/L (98-107); GLUCOSE 71 mg/dL (75-110); POTASSIUM 3.7 mmol/L (3.6-5.0); SODIUM 138.7 mmol/L (137-145); TOTAL PROTEIN 7.3 g/dL (6.3-8.2)
--- NOTE | 2017-09-07 18:34 | RADIOLOGY REPORT (SQ) ---
EXAM DESCRIPTION: U/S OB 14+ TRNABD 1GES W/O DOP COMPLETED DATE/TIME: 09/07/2017 6:15 pm REASON FOR STUDY: 20w, abd pain, cramps COMPARISON: 05/27/2017. TECHNIQUE: Static and Dynamic grayscale imaging performed of gravid uterus using transabdominal appr oach. Additional selected color Doppler and spectral images recorded. All stored on PACS. LIMITATIONS: Limited due to movement. FINDINGS: EGA: 19 week. MAGED: 02/01/2018. EFW: 287 g. grams PERCENTILE: Not applicable. Fetus less than or equal to 20 weeks gestation. KATIE: Largest pocket 2.2 cm. PLACENTA: Anterior. GRADE: I PRESENTATION: Breech. ANATOMY: HEART RATE: 153 beats per minute. FOUR CHAMBER HEART: Visualized. THREE VESSEL CORD: Yes. CORD INSERTION: Visualized. KIDNEYS AND BLADDER: Visualized. Appear normal. STOMACH: Visualized. Appears normal. SPINE: Normal as visualized. BRAIN AND LATERAL VENTRICLES: Visualized. Appear normal. OTHER: No other significant finding. MATERNAL ADNEXA: Maternal ovaries not visualized. CERVICAL LENGTH: 4.4 cm. Closed. OTHER: No other significant finding. IMPRESSION: LIVING INTRAUTERINE . ESTIMATED GESTATIONAL AGE 19 WEEK. NO VISUALIZED ANOMALIES. Trimester of : Second trimester - 13 weeks 1 day to 27 weeks 6 days. TECHNICAL DOCUMENTATION: JOB ID: [id number] [facility]- All Rights Reserved
[2017-09-07] MEDS ORDERED: ACETAMINOPHEN 325 MG TABLET PO ONE (21:03)
[2017-09-07] MEDS ORDERED: ONDANSETRON ODT 4 MG TAB (6 TAB/DSPK) PO PRN (21:03)
--- NOTE | 2017-09-07 21:05 | ER Document Report ---
ED General - General Chief Complaint: Vomiting Stated Complaint: VOMITING,BACK PAIN,HEADACHE Time Seen by Provider: 09/07/17 15:00 Notes: Patient is a 27-year-old female currently 20 weeks who presents with 12 hours of nausea, vomiting and diarrhea. She states that multiple people in her home are sick with similar symptoms. She notes that since she began having vomiting and diarrhea she has had intermittent abdominal cramping that radiates into her low back. Pain in her abdomen is described as an intermittent, dull, cramping pain. Nothing improves or worsens her symptoms. She denies a history of similar symptoms during this . She has been able to tolerate oral intake since arriving to the emergency department and states that she has not vomited in approximately 6 hours. She has been tolerating fluids since that time. No vaginal discharge or bleeding. No dysuria. She has not seen her primary doctor or [facility] regarding today's concerns. TRAVEL OUTSIDE OF THE [place] IN LAST 30 DAYS: No - Related Data Allergies/Adverse Reactions: penicillin G benzathine [From Bicillin C-R] Allergy (Verified 09/07/17 14:41) penicillin G procaine [From Bicillin C-R] Allergy (Verified 09/07/17 14:41) Past Medical History - General Information source: Patient - Social History Smoking Status: Never Smoker Chew tobacco use (# tins/day): No Frequency of alcohol use: None Drug Abuse: None Family History: DM, Hyperlipidemia, Hypertension, Malignancy, Thyroid Disfunction Patient has suicidal ideation: No Patient has homicidal ideation: No Renal/ Medical History: Denies: Hx Peritoneal Dialysis GI Medical History: Reports: Hx Ulcer Psychiatric Medical History: Reports: Hx Depression Past Surgical History: Reports: Hx Section, Hx Oral Surgery - Immunizations Immunizations up to date: Yes Hx Diphtheria, Pertussis, Tetanus Vaccination: Yes Review of Systems - Review of Systems Notes: Constitutional: Negative for fever. HENT: Negative for sore throat. Eyes: Negative for visual changes. Cardiovascular: Negative for chest pain. Respiratory: Negative for shortness of breath. Gastrointestinal: Positive for abdominal pain, vomiting, diarrhea. Genitourinary: Negative for dysuria. Musculoskeletal: Negative for back pain. Skin: Negative for rash. Neurological: Negative for headaches, weakness or numbness. 10 point ROS negative except as marked above and in HPI. Physical Exam - Vital signs Vitals: Temp Pulse Resp BP Pulse Ox 99.1 F 85 16 95/58 L 100 09/07/17 14:29 09/07/17 14:29 09/07/17 14:29 09/07/17 14:29 09/07/17 14:29 Interpretation: Hypotensive Notes: PHYSICAL EXAMINATION: GENERAL: Well-appearing, well-nourished and in no acute distress. Playing on her cell phone when I walked into the room. In no apparent discomfort. HEAD: Atraumatic, normocephalic. EYES: Pupils equal round and reactive to light, extraocular movements intact, sclera anicteric, conjunctiva are normal. ENT: nares patent, oropharynx clear without exudates. Moderately dry mucous membranes. NECK: Normal range of motion, supple without lymphadenopathy LUNGS: Breath sounds clear to auscultation bilaterally and equal. No wheezes rales or rhonchi. HEART: Regular rate and rhythm without murmurs ABDOMEN: Soft, gravid uterus, nontender, normoactive bowel sounds. No guarding , no rebound. No masses appreciated. EXTREMITIES: Normal range of motion, no pitting or edema. No cyanosis. NEUROLOGICAL: No focal neurological deficits. Moves all extremities spontaneously and on command. PSYCH: Normal mood, normal affect. SKIN: Warm, Dry, normal turgor, no rashes or lesions noted. Course - Re-evaluation Re-evalutation: 09/07/17 21:02 Patient presents with persistent vomiting during . Vitals at time of arrival unremarkable without tachycardia or hypotension. Laboratories reveal a normal creatinine and no evidence of significant dehydration. Patient was able to tolerate oral intake here in the emergency department. Transvaginal ultrasound without any evidence of acute related pathology. No vaginal bleeding or discharge. Based on abdominal exam, vitals and history I do not suspect an acute appendicitis, cholestasis of , acute cholecystitis, pancreatitis, or bowel obstruction. I suspect likely viral in etiology of patient's presentation is that her children were sick with a very similar illness and her symptoms lasted a duration of approximately 10 hours after spontaneous resolution. At this time will discharge with return precautions and follow-up recommendations. Verbal discharge instructions given a the bedside and opportunity for questions given. Medication warnings reviewed. Patient is in agreement with this plan and has verbalized understanding of return precautions and the need for primary care follow-up in the next 24-72 hours. - Vital Signs Vital signs: Temp Pulse Resp BP Pulse Ox 98.2 F 82 18 103/58 L 99 09/07/17 21:16 09/07/17 21:16 09/07/17 21:16 09/07/17 21:16 09/07/17 21:16 - Laboratory Result Diagrams: 09/07/17 15:21 09/07/17 15:21 Laboratory results interpreted by me: 09/07/17 09/07/17 09/07/17 15:21 15:21 15:21 Hgb 11.1 L Hct 33.5 L Seg Neutrophils % 87.3 H Lymphocytes % 7.8 L Absolute Neutrophils 8.7 H Carbon Dioxide 18 L Creatinine 0.50 L Glucose 71 L Urine Ketones 80 H Ur Leukocyte Esterase TRACE H Urine Ascorbic Acid 20 H - Diagnostic Test Radiology reviewed: Reports reviewed Discharge - Discharge Clinical Impression: Vomiting during , Back pain during Abdominal pain during Qualifiers: Trimester: second trimester Qualified Code(s): O26.892 - Other specified related conditions, second trimester Condition: Good Disposition: HOME, SELF-CARE Additional Instructions: You have been seen for vomiting during . You should continue to drink plenty of water and consider taking a solution such as Pedialyte if your having difficulty eating food. Please return if you become unable to drink any fluids for more than 12 hours, worsening discomfort in your abdomen or back, urinate less than twice a day, pass out, or have any other symptoms that are concerning to you. Take the Zofran that you have been sent home with as needed for nausea and vomiting.
[2017-09-07 21:21] VITALS: BP 103/58
== END 2017-09-07 21:21 | disposition home or self-care (01) ==
LOC: ER 14:17
DX: O26.892 Other specified pregnancy related conditions, second trimester (principal); R10.9 Unspecified abdominal pain; M54.9 Dorsalgia, unspecified; O21.9 Vomiting of pregnancy, unspecified; Z3A.20 20 weeks gestation of pregnancy; Z88.0 Allergy status to penicillin
CPT/HCPCS: 99284; 96372; 36415; 85025; 80053; 81001; 76805; J3490; J2765

== ENCOUNTER 2017-11-02 21:10 | Outpatient (CLI) | payer MEDICAID ==
--- NOTE | 2017-11-02 21:20 | Non Stress Test Report ---
Non Stress Test Datetime Report Generated by CPN: 11/02/2017 21:19 DEMOGRAPHIC EGA NST: 36.0 INDICATION Indication for Study: Decreased Movement MONITORING Monitor Explained: Monitor Explained; Test Explained; Patient Verbalized Understanding Time on Monitor: 02/28/2016 12:36 Time off Monitor: 02/28/2016 14:01 NST Duration: 85 NST INTERVENTIONS NST Interventions: PO Hydration; Reposition Patient NST Interventions Other: Keke Jeffery, CNM made aware BABY A: [id number] BABY A Movement : Present Contraction Frequency : 3-5 FHR Baseline : 135 Accelerations : 15X15 Decelerations : Late Variability : Moderate 6-25bpm NST Review: Meets Criteria for Reactive NST NST Review and Verified By : Iker Bellavancdemetrius RNC NST Results: Reactive NST REPORT Report Trigger: Send Report
[2017-11-02 21:44] LABS: APPEARANCE,URINE SLIGHTLY-CLOUDY; BILIRUBIN,URINE NEGATIVE (NEGATIVE); COLOR,URINE YELLOW; GLUCOSE, URINE NEGATIVE (NEGATIVE); KETONES,URINE NEGATIVE (NEGATIVE); LEUKOCYTE ESTERASE,URINE SMALL (NEGATIVE); NITRITE,URINE NEGATIVE (NEGATIVE); PROTEIN,URINE NEGATIVE (NEGATIVE); URINE SPECIFIC GRAVITY 1.017; UROBILINOGEN,URINE NEGATIVE mg/dL (<2.0)
[2017-11-02 21:56] LABS: URINE AMPHETAMINES SCREEN NEGATIVE; URINE BARBITURATES SCREEN NEGATIVE; URINE BENZODIAZEPINES SCREEN NEGATIVE; URINE COCAINE SCREEN NEGATIVE; URINE MARIJUANA (THC) SCREEN NEGATIVE; URINE METHADONE SCREEN NEGATIVE; URINE PHENCYCLIDINE SCREEN NEGATIVE
[2017-11-02 22:00] LABS: T.VAGINALIS (WET MOUNT) NO TRICHOMONAS SEEN; WBCS (WET MOUNT) RARE WBCS SEEN; YEAST (WET MOUNT) NO YEAST SEEN
[2017-11-02 22:07] LABS: AMNISURE (ROM) NEGATIVE (NEGATIVE)
== END 2017-11-02 22:51 | disposition home or self-care (01) ==
LOC: LC 21:10
PROVIDERS: ATTEND Obstetrics & Gynecology Gynecology
PROC: 4A1HXCZ Monitoring of Products of Conception, Cardiac Rate, External Approach (ICD-10-PCS; principal; 2017-11-02)
DX: O36.8130 Decreased fetal movements, third trimester, not applicable or unspecified (principal); Z3A.36 36 weeks gestation of pregnancy
CPT/HCPCS: 59025; 84112; 87210; 81001; 80307; Q0114

== ENCOUNTER 2017-12-09 20:06 | Outpatient (CLI) | payer MEDICAID ==
--- NOTE | 2017-12-09 21:23 | Non Stress Test Report ---
Non Stress Test Datetime Report Generated by CPN: 12/09/2017 21:23 DEMOGRAPHIC EGA NST: 33.4 INDICATION Indication for Study: Ordered by Provider Indication for Study (NST) Other: Repeat from office MONITORING Monitor Explained: Monitor Explained; Test Explained; Patient Verbalized Understanding Time on Monitor: 12/09/2017 20:16 Time off Monitor: 12/09/2017 21:16 NST Duration: 60 NST INTERVENTIONS NST Interventions: PO Hydration; Reposition Patient Physician Notified NST: Dr. Mujica BABY A: [id number] BABY A Movement : Present Contraction Frequency : x2 FHR Baseline : 130 Accelerations : 15X15 Decelerations : None Variability : Moderate 6-25bpm NST Review: Meets Criteria for Reactive NST NST Review and Verified By : Yesenia Arias RN NST Results: Reactive NST REPORT Report Trigger: Send Report
== END 2017-12-09 21:19 | disposition home or self-care (01) ==
LOC: LC 20:06
PROVIDERS: ATTEND Obstetrics & Gynecology
PROC: 4A1HXCZ Monitoring of Products of Conception, Cardiac Rate, External Approach (ICD-10-PCS; principal; 2017-12-09)
DX: Z34.93 Encounter for supervision of normal pregnancy, unspecified, third trimester (principal)
CPT/HCPCS: 59025

== ENCOUNTER 2017-12-16 15:16 | Outpatient (CLI) | payer MEDICAID ==
--- NOTE | 2017-12-16 16:04 | Non Stress Test Report ---
Non Stress Test Datetime Report Generated by CPN: 12/16/2017 16:04 DEMOGRAPHIC EGA NST: 34.4 INDICATION Indication for Study: Ordered by Provider MONITORING Monitor Explained: Monitor Explained; Test Explained; Patient Verbalized Understanding Time on Monitor: 12/16/2017 15:27 Time off Monitor: 12/16/2017 15:58 NST Duration: 31 NST INTERVENTIONS NST Interventions: PO Hydration; Reposition Patient Physician Notified NST: Dr Cano BABY A: [id number] BABY A Movement : Present Contraction Frequency : None FHR Baseline : 130 Accelerations : 15X15 Decelerations : None Variability : Moderate 6-25bpm NST Review: Meets Criteria for Reactive NST NST Review and Verified By : NANETTE Peguero Results: Reactive NST REPORT Report Trigger: Send Report
== END 2017-12-16 16:01 | disposition home or self-care (01) ==
LOC: LC 15:16
PROVIDERS: ATTEND Student in an Organized Health Care Education/Training Program
PROC: 4A1HXCZ Monitoring of Products of Conception, Cardiac Rate, External Approach (ICD-10-PCS; principal; 2017-12-16)
DX: Z34.83 Encounter for supervision of other normal pregnancy, third trimester (principal); Z3A.34 34 weeks gestation of pregnancy
CPT/HCPCS: 59025

== ENCOUNTER 2018-01-06 15:42 | Outpatient (CLI) | payer MEDICAID ==
[2018-01-06] MEDS ORDERED: RINGERS SOLUTION,LACTATED 1,000 ML IV ONE (16:10)
[2018-01-06] MEDS ORDERED: HYDROXYZINE PAMOATE 50 MG CAPSULE ONE (16:14)
[2018-01-06] MEDS ORDERED: HYDROXYZINE PAMOATE 50 MG CAPSULE PO ONE (16:45)
[2018-01-06 17:18] LABS: APPEARANCE,URINE SLIGHTLY-CLOUDY; BILIRUBIN,URINE NEGATIVE (NEGATIVE); COLOR,URINE YELLOW; GLUCOSE, URINE NEGATIVE (NEGATIVE); KETONES,URINE TRACE mg/dL (NEGATIVE); LEUKOCYTE ESTERASE,URINE SMALL (NEGATIVE); NITRITE,URINE NEGATIVE (NEGATIVE); PROTEIN,URINE NEGATIVE (NEGATIVE); URINE SPECIFIC GRAVITY 1.015; UROBILINOGEN,URINE NEGATIVE mg/dL (<2.0)
--- NOTE | 2018-01-06 17:25 | Non Stress Test Report ---
Non Stress Test Datetime Report Generated by CPN: 01/06/2018 17:24 DEMOGRAPHIC EGA NST: 37.4 INDICATION Indication for Study: Ordered by Provider MONITORING Monitor Explained: Monitor Explained; Test Explained; Patient Verbalized Understanding Time on Monitor: 01/06/2018 16:03 Time off Monitor: 01/06/2018 17:23 NST Duration: 80 NST INTERVENTIONS NST Interventions: IV Fluids Physician Notified NST: Anuel BABY A: [id number] BABY A Movement : Present Contraction Frequency : rare FHR Baseline : 125 Accelerations : 15X15 Decelerations : None Variability : Moderate 6-25bpm NST Review: Meets Criteria for Reactive NST NST Review and Verified By : Iker Bellavancdemetrius RNC NST Results: Reactive NST REPORT Report Trigger: Send Report
[2018-01-06 17:45] LABS: URINE AMPHETAMINES SCREEN NEGATIVE; URINE BARBITURATES SCREEN NEGATIVE; URINE BENZODIAZEPINES SCREEN NEGATIVE; URINE COCAINE SCREEN NEGATIVE; URINE MARIJUANA (THC) SCREEN NEGATIVE; URINE METHADONE SCREEN NEGATIVE; URINE PHENCYCLIDINE SCREEN NEGATIVE
== END 2018-01-06 18:11 | disposition home or self-care (01) ==
LOC: LC 15:42
PROVIDERS: ATTEND Obstetrics & Gynecology
PROC: 4A1HXCZ Monitoring of Products of Conception, Cardiac Rate, External Approach (ICD-10-PCS; principal; 2018-01-06)
DX: O47.1 False labor at or after 37 completed weeks of gestation (principal); Z3A.37 37 weeks gestation of pregnancy
CPT/HCPCS: 59025; 81001; 80307; J3490

== ENCOUNTER 2018-01-17 23:31 | Inpatient (IN) | payer MEDICAID ==
[~2018-01-17 23:31] MED LIST: VANCOMYCIN HCL INJ 1000 MG VIAL IV SCH
[2018-01-17] MEDS ORDERED: VANCOMYCIN HCL INJ 1000 MG VIAL ONE (23:48)
[2018-01-17] MEDS ORDERED: DINOPROSTONE 10 MG VAGINAL INSERT.SR ONE (23:48)
[2018-01-18] MEDS ORDERED: RINGERS SOLUTION,LACTATED 1,000 ML IV PRN
[2018-01-18] MEDS ORDERED: RINGERS SOLUTION,LACTATED 1,000 ML IV ONE
[2018-01-18 00:10] LABS: ABSOLUTE EOSINOPHILS # (AUTO) 0.1 10^3/uL (0.0-0.6); ABSOLUTE LYMPHOCYTES (AUTO) 2.3 10^3/uL (0.5-4.7); ABSOLUTE NEUT (AUTO) 7.8 10^3/uL (1.7-8.2); BASOPHILS % (AUTO) 0.2 % (0-2); EOSINOPHILS % (AUTO) 0.5 % (0-6); HEMATOCRIT 32.2 % (36.0-47.0); HEMOGLOBIN 10.6 g/dL (12.0-15.5); LYMPHOCYTES % (AUTO) 20.5 % (13-45); MEAN CORPUSCULAR HEMOGLOBIN 26.8 pg (27.0-33.4); MEAN CORPUSCULAR VOLUME 81 fl (80-97); MONOCYTES % (AUTO) 8.9 % (3-13); PLATELET COUNT 163 10^3/uL (150-450); RED BLOOD COUNT 3.96 10^6/uL (3.72-5.28); RED CELL DISTRIBUTION WIDTH 13.2 % (11.5-14.0); SEGMENTED NEUTROPHILS % (AUTO) 69.9 % (42-78); TOTAL CELLS COUNTED % (AUTO) 100 %; WHITE BLOOD COUNT 11.2 10^3/uL (4.0-10.5)
[2018-01-18 00:13] LABS: APPEARANCE,URINE SLIGHTLY-CLOUDY; BILIRUBIN,URINE NEGATIVE (NEGATIVE); COLOR,URINE YELLOW; GLUCOSE, URINE NEGATIVE (NEGATIVE); KETONES,URINE NEGATIVE (NEGATIVE); LEUKOCYTE ESTERASE,URINE MODERATE (NEGATIVE); NITRITE,URINE NEGATIVE (NEGATIVE); PROTEIN,URINE NEGATIVE (NEGATIVE); URINE SPECIFIC GRAVITY 1.015
[2018-01-18] MEDS ORDERED: OXYTOCIN/NORMAL SALINE 20 UNIT/1,000 ML RTUINJ IV PRN ×2 (01:12→14:49)
[2018-01-18] MEDS ORDERED: DINOPROSTONE 10 MG VAGINAL INSERT.SR PV PRN (01:12)
[2018-01-18 01:25] LABS: URINE AMPHETAMINES SCREEN NEGATIVE; URINE BARBITURATES SCREEN NEGATIVE; URINE BENZODIAZEPINES SCREEN NEGATIVE; URINE COCAINE SCREEN NEGATIVE; URINE MARIJUANA (THC) SCREEN NEGATIVE; URINE METHADONE SCREEN NEGATIVE; URINE PHENCYCLIDINE SCREEN NEGATIVE
[2018-01-18] MEDS ORDERED: VANCOMYCIN HCL 1,000 MG in DEXTROSE 5%-WATER 250 ML IV ONE (01:30)
[2018-01-18] MEDS ORDERED: PROMETHAZINE HCL INJ 25 MG/1 ML VIAL ONE (03:48)
[2018-01-18] MEDS ORDERED: NALBUPHINE HCL INJ 10 MG/1 ML AMPULE ONE (03:48)
[2018-01-18] MEDS ORDERED: MISOPROSTOL 0.2 MG TABLET ONE (03:52)
[2018-01-18] MEDS ORDERED: LIDOCAINE 1% INJ-PF (10 MG/ML) 30 ML SDV ONE (03:52)
[2018-01-18] MEDS ORDERED: OXYTOCIN/NORMAL SALINE 20 UNIT/1,000 ML RTUINJ ONE (03:52)
--- NOTE | 2018-01-18 09:21 | Admission Physical ---
Datetime Report Generated by CPN: 01/18/2018 09:20 CURRENT ADMISSION Hx Assessment: The History has been Reviewed and is Current Chief Complaint: Scheduled Induction of Labor Indication for Induction: IUGR Admit Impression : Term, Intrauterine ; No Active Labor Admit Plan: Admit to Unit; Initiate Labor Induction Protocol ALLERGIES Medication Allergies: Yes Medication Allergies: penicillin G benzathine (01/17/2018); penicillin G procaine (01/17/2018) Latex: No Latex Allergies Food Allergies: N/A Environmental Allergies: N/A OBSTETRICAL HISTORY EDC: 01/23/2018 00:00 : 4 Para: 2 Term: 2 : 0 SAB: 1 IAB: 0 Ectopic: 0 Livin Cesareans: 0 VBACs: 0 Multiple Births: 0 Gestational Diabetes: No Rh Sensitization: No Incompetent Cervix: No JENNIFER: No Infertility: No ART Treatment: No Uterine Anomaly: No IUGR: Yes Hx Previous C/S: No Macrosomia: No Hx Loss/Stillborn: No PIH: No Hx : No Placenta Previa/Abruption: No Depression/PP Depression: Yes PTL/PROM: No Post Hemorrhage: No Current Procedures: Ultrasound Obstetrical History Comments: G1-2014 , IUGR G2-2015 G3-2016 SAB G4- current, IUGR SEE RECORDS Alcohol: No Marijuana : No Cocaine: No Other Illicit Drugs: No Cigarettes: Never Smoker. 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: No Heart Disease: No Hosp/Surgery: Yes Autoimmune Disorder: No Anesthetic Complications: No Kidney Disease: No Abnormal Pap Smear: Yes Neuro/Epilepsy: No Psychiatric Disorders: Yes Other Medical Diseases: No Hepatitis/Liver Disease: No Significant Family History: No Varicosities/Phlebitis: No Trauma/Violence : No Thyroid Dysfunction: No Medical History Comments: hospitalization childbirth; abn pap: ASCUS HR HPV , colpo 02/07 benign, depression/ anxiety, INFECTIOUS HISTORY Gonorrhea: No Genital Herpes: No Chlamydia: No Tuberculosis: No Syphilis: No Hepatitis: No HIV/AIDS Exposure: No Rash or Viral Illness: No HPV: Yes Infectious History Comments: HPV PHYSICAL EXAM General: Normal HEENT: Deferred Neurologic: Normal Thyroid: Deferred Heart: Normal Lungs: Normal Breast: Normal Back: Normal Abdomen: Normal Genitourinary Exam: Normal Extremities: Normal DTRs: Normal Pelvic Type: Adequate Physical Exam Comments: proven to 6lbs 15 oz cervix exam per RN exam at 0700 Vital Signs: Reviewed; Within Normal Limits VAGINAL EXAM Dilatation: 2 Effacement: 70 Station: -1 Contraction Comments: 2-4 MEMBRANES Membranes: Intact FETUS A EGA: 39.2 Monitoring: External US FHR- Baseline: 120 Variability: Minimal - Undetectable to <=5bpm Accelerations: 10X10 Decelerations: None FHR Category: Category I Presentation: Vertex Admit Comment: 27yo @ 39w2d admitted into L_D last night for IOL secondary to IUGR. Pt. is B pos, RI, GBS pos with an allergy to PCN and receiving Vancomycin @ 0024 last night. Pt. had cervidil placed @ 0101 and pulled at 0702 this AM. Pitocin started @ 0835. Hx significant for depression and anxiety and an abnormal pap smear with colposcopy in 2013. Plan is to continue IOL, epidural prn. PLANS FOR LABOR AND DELIVERY Labor and Delivery: None Pain Management: Epidural Feeding Preference: Both Benefit of Breast Feed Discussed: Yes Circumcision: N/A INFORMED CONSENT Assignment: Vivian Agee MD Signature: with User ID: Shi : with User ID: [email or web address]
[2018-01-18] MEDS ORDERED: FENTANYL CITRATE INJ/PF 100 MCG/2 ML AMPUL ONE (09:49)
[2018-01-18] MEDS ORDERED: EPHEDRINE SULFATE INJ 50 MG/1 ML AMPULE ONE (09:50)
[2018-01-18] MEDS ORDERED: BUPIVACAINE HCL 0.25 % INJ/PF (2.5 MG/1 ML) 30 ML VIAL ONE (09:50)
[2018-01-18] MEDS ORDERED: PHENYLEPHRINE HCL INJ/PF 10 MG/1 ML SDV ONE (09:50)
[2018-01-18] MEDS ORDERED: FENTANYL/BUPIVACAINE/NS/PF 300 MCG/150 ML RTUINJ EPI ONE (09:51)
[2018-01-18] MEDS ORDERED: PROMETHAZINE HCL INJ 25 MG/1 ML VIAL IV PRN (14:49)
[2018-01-18] MEDS ORDERED: DIPH/PERTUSS(ACELL)/TETANUS VAC/PF 0.5 ML SYR (>=10YO) IM PRN (14:49)
[2018-01-18] MEDS ORDERED: NA PHOS,M-B/NA PHOS,DI-BA (ADULT) 133 ML ENEMA PR PRN (14:49)
[2018-01-18] MEDS ORDERED: ACETAMINOPHEN 650 MG SUPP.RECT PR PRN (14:49)
[2018-01-18] MEDS ORDERED: ACETAMINOPHEN 325 MG TABLET PO PRN (14:49)
[2018-01-18] MEDS ORDERED: DIPHENHYDRAMINE HCL 25 MG CAPSULE PO PRN (14:49)
[2018-01-18] MEDS ORDERED: ACETAMINOPHEN WITH CODEINE #3 TABLET PO PRN (14:49)
[2018-01-18] MEDS ORDERED: PROMETHAZINE HCL 25 MG TABLET PO PRN (14:49)
[2018-01-18] MEDS ORDERED: MAGNESIUM HYDROXIDE SUSP 30 ML UDCUP PO PRN (14:49)
[2018-01-18] MEDS ORDERED: GLYCERIN/WITCH HAZEL LEAF 1 EACH MED..PAD TP PRN (14:49)
[2018-01-18] MEDS ORDERED: PROMETHAZINE HCL 25 MG SUPP.RECT PR PRN (14:49)
[2018-01-18] MEDS ORDERED: BENZOCAINE/MENTHOL AEROSOL SPRAY 56 ML TOP PRN (14:49)
[2018-01-18] MEDS ORDERED: MEASLES,MUMPS&RUBELLA VACC/PF 0.5 ML VIAL SUBCUT PRN (14:49)
[2018-01-18] MEDS ORDERED: DIBUCAINE 1% OINTMENT 28 GM TP PRN (14:49)
[2018-01-18] MEDS ORDERED: PSEUDOEPHEDRINE HCL 30 MG TABLET PO PRN (14:49)
[2018-01-18] MEDS: FERROUS SULFATE 325 MG TABLET PO SCH (17:47)
[2018-01-18] MEDS: DOCUSATE SODIUM 100 MG CAPSULE PO SCH (17:47)
[2018-01-18] MEDS: IBUPROFEN 800 MG TABLET PO SCH (22:04)
[2018-01-18] MEDS: FAMOTIDINE 20 MG TABLET PO SCH (22:05)
[2018-01-19] MEDS: IBUPROFEN 800 MG TABLET PO SCH ×3 (05:39→22:13)
[2018-01-19 07:27] LABS: HEMATOCRIT 30.6 % (36.0-47.0); HEMOGLOBIN 9.9 g/dL (12.0-15.5); MEAN CORPUSCULAR HEMOGLOBIN 26.6 pg (27.0-33.4); MEAN CORPUSCULAR HGB CONC 32.4 g/dL (32.0-36.0); MEAN CORPUSCULAR VOLUME 82 fl (80-97); PLATELET COUNT 168 10^3/uL (150-450); RED BLOOD COUNT 3.73 10^6/uL (3.72-5.28); RED CELL DISTRIBUTION WIDTH 13.7 % (11.5-14.0); WHITE BLOOD COUNT 16.1 10^3/uL (4.0-10.5)
[2018-01-19] MEDS ORDERED: VARICELLA VACC/PF (1350 UNIT/0.5 ML) 0.5 ML VIAL SUBCUT ONE (08:00)
[2018-01-19] MEDS ORDERED: VARICELLA VACC/PF (1350 UNIT/0.5 ML) 0.5 ML VIAL SUBCUT PRN (08:04)
[2018-01-19] MEDS: SENNOSIDES/DOCUSATE 8.6-50 MG 1 EACH TABLET PO SCH (09:21)
[2018-01-19] MEDS: FERROUS SULFATE 325 MG TABLET PO SCH ×2 (09:21→17:29)
[2018-01-19] MEDS: PRENATAL VITAMIN W DHA CAPSULE PO SCH (09:21)
[2018-01-19] MEDS: DOCUSATE SODIUM 100 MG CAPSULE PO SCH ×2 (09:21→17:30)
[2018-01-19] MEDS: FAMOTIDINE 20 MG TABLET PO SCH ×2 (09:22→22:14)
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
[2018-01-19] MEDS ORDERED: ESCITALOPRAM OXALATE 10 MG TABLET PO ONE (11:00)
[2018-01-20] MEDS: IBUPROFEN 800 MG TABLET PO SCH ×2 (05:49→13:13)
[2018-01-20 08:20] VITALS: BP 128/87
[2018-01-20] MEDS: FAMOTIDINE 20 MG TABLET PO SCH (09:44)
[2018-01-20] MEDS: FERROUS SULFATE 325 MG TABLET PO SCH (09:44)
[2018-01-20] MEDS: DOCUSATE SODIUM 100 MG CAPSULE PO SCH (09:44)
[2018-01-20] MEDS: SENNOSIDES/DOCUSATE 8.6-50 MG 1 EACH TABLET PO SCH (09:44)
[2018-01-20] MEDS: PRENATAL VITAMIN W DHA CAPSULE PO SCH (09:44)
[2018-01-20] MEDS ORDERED: ESCITALOPRAM OXALATE 10 MG TABLET PO SCH (10:00)
--- NOTE | 2018-01-20 10:20 | PDOC PROGRESS REPORT ---
Subjective-OB Progress Note for:: 01/20/18 Subjective: Day #2 s/p Reports productive cough, denies fever or chills, green mucous, states lochia is stable, pain well controlled, voiding without difficulty. Physical Exam (OB) Vital Signs: Temp Pulse Resp BP Pulse Ox 98.1 F 71 18 128/87 H 98 01/20/18 08:20 01/20/18 08:20 01/20/18 08:20 01/20/18 08:20 01/20/18 08:20 Intake & Output 01/19/18 01/20/18 01/21/18 06:59 06:59 06:59 Intake Total 200 Output Total 1 Balance -1 200 - Lochia Lochia Amount: Small 10-25 ml Lochia Color: Rubra/Red - Abdomen Description: Soft, Round Hernia Present: No Fundal Description: Firm, Midline Fundal Height: u/u - u/2 - Respiratory Respiratory Status: No respiratory distress Chest Status: Nontender Breath sounds: Productive cough Objective-Diagnostic Laboratory: 01/19/18 07:12 Assessment and Plan(PN) - Assessment and Plan (1) Upper respiratory infection Qualifiers: URI type: unspecified URI Qualified Code(s): J06.9 - Acute upper respiratory infection, unspecified Is this a current diagnosis for this admission?: Yes Plan: sent home with angella and shahabex (2) History anxiety and depression Is this a current diagnosis for this admission?: Yes Plan: 1 week f/u sent home with lexapro 10 mg (3) Vaginal delivery Is this a current diagnosis for this admission?: Yes Plan: routine pp care - Time Spent with Patient Time with patient: Less than 15 minutes Critical Time spent with patient: Less than 15 minutes Medications reviewed and adjusted accordingly: Yes - Disposition Anticipated Discharge: Home Within: within 24 hours
--- NOTE | 2018-01-20 10:21 | PDOC DISCHARGE SUMMARY ---
Final Diagnosis Discharge Date: 01/20/18 - Final Diagnosis (1) Upper respiratory infection Is this a current diagnosis for this admission?: Yes (2) History anxiety and depression Is this a current diagnosis for this admission?: Yes (3) Vaginal delivery Is this a current diagnosis for this admission?: Yes Discharge Data - Discharge Medication Prescriptions: Azithromycin 250 mg PO DAILY 5 Days #6 tablet Docusate Sodium [Colace 100 mg Capsule] 100 mg PO BID #60 capsule Escitalopram Oxalate [Lexapro 10 mg Tablet] 10 mg PO DAILY #30 tablet Guaifenesin [Mucinex] 1,200 mg PO BID 5 Days #10 tbmp.12hr Ibuprofen [Motrin 800 mg Tablet] 800 mg PO Q8 #60 tablet Home Medications: Vqu846/Iron/Folic/Dha [ Formula-Dha Softgel] 1 each PO DAILY Ferrous Sulfate [Iron] 325 mg PO DAILY 11/02/17 Azithromycin 250 mg PO DAILY 5 Days #6 tablet 01/20/18 Docusate Sodium [Colace 100 mg Capsule] 100 mg PO BID #60 capsule 01/20/18 Escitalopram Oxalate [Lexapro 10 mg Tablet] 10 mg PO DAILY #30 tablet 01/20/18 Guaifenesin [Mucinex] 1,200 mg PO BID 5 Days #10 tbmp.12hr 01/20/18 Ibuprofen [Motrin 800 mg Tablet] 800 mg PO Q8 #60 tablet 01/20/18 Gestational Age: 39 Reason(s) for Admission: Induction of Labor, Other - iugr Procedures: NST Intrapartum Procedure(s): Spontaneous Vaginal Delivery - Data Baby 1 Female Home with Mother: Yes Complications: No - Diagnosis Test Laboratory: Temp Pulse Resp BP Pulse Ox 98.1 F 71 18 128/87 H 98 01/20/18 08:20 01/20/18 08:20 01/20/18 08:20 01/20/18 08:20 01/20/18 08:20 01/17/18 01/17/18 01/19/18 23:58 23:58 07:12 RBC 3.96 3.73 Hgb 10.6 L 9.9 L Hct 32.2 L 30.6 L Urine Opiates Screen NEGATIVE - Discharge information/Instructions Discharge Activity: Activity As Tolerated, No Lifting Over 10 Pounds, No tub bath, Walk Frequently Discharge Diet: Regular Disposition: HOME, SELF-CARE Follow up with: [facility] in: 1, Weeks
== END 2018-01-20 13:30 | disposition home or self-care (01) | DRG 775 ==
LOC: LR 23:31 → 2S 01-18 16:59
PROVIDERS: ADMIT Obstetrics & Gynecology; ATTEND Obstetrics & Gynecology
PROC: 10E0XZZ Delivery of Products of Conception, External Approach (ICD-10-PCS; principal; 2018-01-18)
DX: O36.5930 Maternal care for other known or suspected poor fetal growth, third trimester, not applicable or unspecified (principal); O99.344 Other mental disorders complicating childbirth; O99.824 Streptococcus B carrier state complicating childbirth; O69.3XX0 Labor and delivery complicated by short cord, not applicable or unspecified; O69.81X0 Labor and delivery complicated by cord around neck, without compression, not applicable or unspecified; O76 Abnormality in fetal heart rate and rhythm complicating labor and delivery; F41.9 Anxiety disorder, unspecified; O99.52 Diseases of the respiratory system complicating childbirth; J06.9 Acute upper respiratory infection, unspecified; Z3A.39 39 weeks gestation of pregnancy; Z37.0 Single live birth
CPT/HCPCS: 36415; 80307; 81005; 85025; 85027; 86592; 86850; 86900; 86901; 88307; 90716; 94760; J2300; J2370; J2550; J2590; J3010; J3370; J3490; J7060

== ENCOUNTER 2018-02-08 10:40 | Emergency (ER) | payer MEDICAID ==
[2018-02-08 11:12] VITALS: BP 110/78
--- NOTE | 2018-02-08 11:35 | ER Document Report ---
ED General - General Chief Complaint: Cough Stated Complaint: COUGH, CONGESTION Time Seen by Provider: 02/08/18 11:06 Notes: 27-year-old female here with complaints of persistent and progressively worsening cough over the past few weeks. The cough is productive of yellow sputum. She has had some runny nose over the past day or 2 as well as unmeasured fevers but no other symptoms. She has not tried anything for the symptoms as she is breast-feeding. No known sick contacts. Immunizations up-to -date. TRAVEL OUTSIDE OF THE [place] IN LAST 30 DAYS: No - Related Data Allergies/Adverse Reactions: penicillin G benzathine [From Bicillin C-R] Allergy (Verified 02/08/18 10:54) penicillin G procaine [From Bicillin C-R] Allergy (Verified 02/08/18 10:54) Past Medical History - Social History Smoking Status: Never Smoker Chew tobacco use (# tins/day): No Frequency of alcohol use: None Drug Abuse: None Family History: DM, Hyperlipidemia, Hypertension, Malignancy, Thyroid Disfunction Patient has suicidal ideation: No Patient has homicidal ideation: No Renal/ Medical History: Denies: Hx Peritoneal Dialysis GI Medical History: Reports: Hx Ulcer Psychiatric Medical History: Reports: Hx Depression Past Surgical History: Reports: Hx Section, Hx Oral Surgery - Immunizations Immunizations up to date: Yes Hx Diphtheria, Pertussis, Tetanus Vaccination: Yes Review of Systems - Review of Systems Notes: See history of present illness for pertinent positive review of systems; otherwise all review of systems have been reviewed and are negative Physical Exam - Vital signs Vitals: Temp Pulse Resp BP Pulse Ox 98.4 F 96 18 110/78 98 02/08/18 11:07 02/08/18 11:07 02/08/18 11:07 02/08/18 11:07 02/08/18 11:07 - Notes Notes: PHYSICAL EXAMINATION: GENERAL: Well-appearing and in no acute distress. HEAD: Atraumatic, normocephalic. EYES: Pupils equal round and reactive to light, extraocular movements intact, sclera anicteric, conjunctiva are normal. ENT: nares patent, oropharynx clear without exudates. Moist mucous membranes. NECK: Normal range of motion, supple without lymphadenopathy LUNGS: Moderate right lower lobe rhonchi with normal aeration. HEART: Regular rate and rhythm without murmurs ABDOMEN: Soft, no tenderness. No facial grimacing/wincing upon palpation. No guarding, no rebound. EXTREMITIES: Normal range of motion, no pitting edema. No cyanosis. NEUROLOGICAL: Cranial nerves grossly intact. Normal sensory/motor exams. PSYCH: Normal mood, normal affect. SKIN: Warm, Dry, normal turgor, no rashes or lesions noted Course - Re-evaluation Re-evalutation: 02/08/18 11:34 MEDICAL DECISION MAKING: Concern for pneumonia versus bronchitis versus URI Given the history of productive cough fevers and right lower lobe rhonchi, suspect pneumonia Her vital signs are stable and do not feel imaging needed at this time Will prescribe azithromycin as she is allergic to penicillins cannot do Augmentin Instructed her to "pump and dump" breastmilk while taking azithromycin and for 2 days afterwards Also instructed follow-up PCP next day or few Patient understands and agrees to the plan of care - Vital Signs Vital signs: Temp Pulse Resp BP Pulse Ox 98.4 F 96 18 110/78 98 02/08/18 11:07 02/08/18 11:07 02/08/18 11:07 02/08/18 11:07 02/08/18 11:07 Discharge - Discharge Clinical Impression: Rhonchi Condition: Good Disposition: HOME, SELF-CARE Additional Instructions: You were seen in the emergency department at [facility]. Finish the antibiotics for presumed right lower lobe pneumonia. Please followup with your primary physician in the next few days for further management/evaluation. Please return to the emergency department for worsening of symptoms or any symptom that you deem to be concerning or life-threatening. Thank you for allowing us to be part of your care. Prescriptions: Azithromycin [Zithromax 250 mg Tablet] 250 mg PO ASDIR PRN #6 tablet PRN Reason:
--- NOTE | 2018-02-08 21:13 | EKG REPORT ---
SEVERITY:- NORMAL ECG - SINUS RHYTHM : Confirmed by: Isamar Schaefer 08-Feb-2018 21:12:25
== END 2018-02-08 11:41 | disposition home or self-care (01) ==
LOC: ER 10:40
DX: R05 Cough (principal); R09.89 Other specified symptoms and signs involving the circulatory and respiratory systems; Z88.0 Allergy status to penicillin
CPT/HCPCS: 93005; 93010; 99283

== ENCOUNTER 2018-04-02 04:15 | Emergency (ER) | payer MEDICAID ==
[2018-04-02 04:45] VITALS: BP 112/73
--- NOTE | 2018-04-02 04:58 | ER Document Report ---
ED General - General Chief Complaint: Cold Symptoms Stated Complaint: SORE THROAT Time Seen by Provider: 04/02/18 04:42 Mode of Arrival: Ambulatory Information source: Patient Notes: Otherwise healthy 27-year-old female with complaints of sore throat 2 days. Patient reports that a few days ago she did notice some white spots in the back of her throat however these have now resolved. Patient reports that she has a 2 -month-old at home so she is concerned she may have strep throat and does not want to pass onto her child. Patient denies any fevers. TRAVEL OUTSIDE OF THE [place] IN LAST 30 DAYS: No - Related Data Allergies/Adverse Reactions: penicillin G benzathine [From Bicillin C-R] Allergy (Verified 02/08/18 10:54) penicillin G procaine [From Bicillin C-R] Allergy (Verified 02/08/18 10:54) Past Medical History - General Information source: Patient - Social History Smoking Status: Never Smoker Frequency of alcohol use: None Drug Abuse: None Family History: DM, Hyperlipidemia, Hypertension, Malignancy, Thyroid Disfunction Patient has suicidal ideation: No Patient has homicidal ideation: No - Medical History Medical History: Negative Renal/ Medical History: Denies: Hx Peritoneal Dialysis GI Medical History: Reports: Hx Ulcer Psychiatric Medical History: Reports: Hx Depression Past Surgical History: Reports: Hx Section, Hx Oral Surgery - Immunizations Immunizations up to date: Yes Hx Diphtheria, Pertussis, Tetanus Vaccination: Yes Review of Systems - Review of Systems Constitutional: No symptoms reported EENT: See HPI Cardiovascular: No symptoms reported Respiratory: No symptoms reported Gastrointestinal: No symptoms reported Genitourinary: No symptoms reported Female Genitourinary: No symptoms reported Musculoskeletal: No symptoms reported Skin: No symptoms reported Hematologic/Lymphatic: No symptoms reported Neurological/Psychological: No symptoms reported Physical Exam - Vital signs Vitals: Temp Pulse Resp BP Pulse Ox 98.0 F 65 18 112/73 100 04/02/18 04:44 04/02/18 04:44 04/02/18 04:44 04/02/18 04:44 04/02/18 04:44 - Notes Notes: PHYSICAL EXAMINATION: GENERAL: Well-appearing, well-nourished and in no acute distress. HEAD: Atraumatic, normocephalic. EYES: Pupils equal round and reactive to light, extraocular movements intact, conjunctiva are normal. ENT: Nares patent, oropharynx mildly erythematous without exudates. Moist mucous membranes. NECK: Normal range of motion, supple without lymphadenopathy LUNGS: Breath sounds clear to auscultation bilaterally and equal. No wheezes rales or rhonchi. HEART: Regular rate and rhythm without murmurs ABDOMEN: Soft, nontender, nondistended abdomen. No guarding, no rebound. No masses appreciated. Female : deferred Musculoskeletal: Normal range of motion, no pitting or edema. No cyanosis. NEUROLOGICAL: Cranial nerves grossly intact. Normal speech, normal gait. Normal sensory, motor exams PSYCH: Normal mood, normal affect. SKIN: Warm, Dry, normal turgor, no rashes or lesions noted. Course - Re-evaluation Re-evalutation: 27-year-old female with chief complaint of sore throat. Patient reports that she had white spots in her throat 2 days ago however these have now resolved. Patient reports multiple episodes of strep throat in the past. Will send down rapid strep and reevaluate patient. Rapid strep negative. Exam unremarkable. Will discharge patient with instruction on supportive care for viral pharyngitis. - Vital Signs Vital signs: Temp Pulse Resp BP Pulse Ox 98.0 F 65 18 112/73 100 04/02/18 04:44 04/02/18 04:44 04/02/18 04:44 04/02/18 04:44 04/02/18 04:44 Discharge - Discharge Clinical Impression: Viral pharyngitis Disposition: HOME, SELF-CARE Additional Instructions: Sore Throat Sore throats may be caused by viruses, bacteria, or fungi. Most are due to a virus, and must get better on their own. Bacterial sore throats, particularly those due to "strep," need treatment with antibiotics. If an antibiotic is prescribed, be sure to take the medication for a full 10 days. Failure to take the antibiotic can result in complications such as rheumatic fever. Sometimes, an injection of antibiotics is given instead of pills or liquid. This single "shot" is equal in effectiveness to the oral medication. To relieve symptoms, take acetaminophen for pain. Sip clear liquids frequently, or eat popsicles or ice chips. Anesthetic sprays or lozenges may help. Make sure the air in the room is not too dry. Avoid using decongestants or antihistamines. Call the doctor if there is no improvement in two days, or if you have difficulty breathing, increasing throat pain, high fever, rash, or frequent vomiting. Your rapid strep test today was negative. *You have been evaluated for a sore throat, pharyngitis *Warm salt water gargles and throat lozenges for comfort *Change toothbrush after two days of antibiotics *Do not let anyone drink/eat after you *Good hand washing *Follow-up with a primary care provider *Return to ED for worsening condition change, difficulty swallowing, or any other needs.
== END 2018-04-02 05:34 | disposition home or self-care (01) ==
LOC: ER 04:15
DX: J02.9 Acute pharyngitis, unspecified (principal)
CPT/HCPCS: 87070; 87880; 99283

== ENCOUNTER 2018-11-02 18:51 | Emergency (ER) | payer MEDICAID, OTHER ==
[2018-11-02 21:52] LABS: A TYPE INFLUENZA AG NEGATIVE (NEGATIVE); B INFLUENZA AG NEGATIVE (NEGATIVE)
[2018-11-03] MEDS ORDERED: DEXAMETHASONE SOD PHOS INJ 10 MG/1 ML VIAL IM ONE (01:20)
[2018-11-03] MEDS ORDERED: ACETAMINOPHEN 325 MG TABLET PO ONE (01:21)
[2018-11-03] MEDS ORDERED: AZITHROMYCIN 250 MG TABLET PO ONE (01:23)
--- NOTE | 2018-11-03 01:26 | ER Document Report ---
HPI - HPI Patient complains to provider of: sore throat Time Seen by Provider: 11/03/18 01:06 Pain Level: 2 Context: 28 female with no past medical history presents to the emergency department for sore throat and earache times 2 days. Patient denies fevers, complains of chills, complains of dysphagia, is able to control her secretions, denies headache or shortness of breath, denies chest pain, denies nausea or vomiting, no other complaints. - CONSTITUTIONAL Constitutional: REPORTS: Chills - EENT EENT: REPORTS: Sore Throat, Ear Pain - bilateral - REPRODUCTIVE Reproductive: DENIES: : Past Medical History - Social History Smoking Status: Unknown if Ever Smoked Family History: DM, Hyperlipidemia, Hypertension, Malignancy, Thyroid Disfunction Patient has suicidal ideation: No Patient has homicidal ideation: No Renal/ Medical History: Denies: Hx Peritoneal Dialysis GI Medical History: Reports: Hx Ulcer Psychiatric Medical History: Reports: Hx Depression Past Surgical History: Reports: Hx Section, Hx Oral Surgery - Immunizations Immunizations up to date: Yes Hx Diphtheria, Pertussis, Tetanus Vaccination: Yes Vertical Provider Document - CONSTITUTIONAL Notes: PHYSICAL EXAMINATION: Reviewed vital signs and charting by RN GENERAL: Alert, interacts well. No acute distress. HEAD: Normocephalic, atraumatic. EYES: Pupils equal, round. Extraocular movements intact. ENT: Oral mucosa moist, tongue midline. 3+ tonsillar hypertrophy with edema of the oropharynx, mild erythema with no tonsillar exudate. NECK: Full range of motion. Supple. Trachea midline. Submandibular and cervical lymphadenopathy LUNGS: Clear to auscultation bilaterally, no wheezes, rales, or rhonchi. No respiratory distress. HEART: Regular rate and rhythm. No murmur EXTREMITIES: Moves all 4 extremities spontaneously. No edema, No cyanosis. NEUROLOGICAL: Alert and oriented to situation. Normal speech. PSYCH: Normal affect, normal mood. SKIN: Warm, dry, normal turgor. No rashes or lesions noted. - INFECTION CONTROL TRAVEL OUTSIDE OF THE [place] IN LAST 30 DAYS: No Course - Re-evaluation Re-evalutation: 11/03/18 01:41 Presentation is most consistent with an acute otitis media. Clinical history as well as exam is most consistent with this diagnosis. Based on history and examination do not suspect an acute meningitis, encephalitis, peritonsillar abscess, or retropharyngeal abscess. She did not is otherwise well in appearance, no acute distress. Vitals otherwise within normal limits. The patient will be started on a azithromycin 500 mg first dose here in 250 mg daily for 4 days because she is breast-feeding. At this time will discharge with return precautions and follow-up recommendations. Verbal discharge instructions given a the bedside and opportunity for questions given. Medication warnings reviewed. She did not in agreement with this plan and has verbalized understanding of return precautions and the need for primary care follow-up in the next 24-72 hours. - Vital Signs Vital signs: Temp Pulse Resp BP Pulse Ox 98.4 F 72 20 108/77 100 11/02/18 19:28 11/02/18 19:28 11/02/18 19:28 11/02/18 19:28 11/02/18 19:28 Discharge - Discharge Clinical Impression: Sore throat Otitis media Qualifiers: Otitis media type: suppurative Chronicity: acute Laterality: right Recurrence: not specified as recurrent Spontaneous tympanic membrane rupture: with spontaneous rupture Qualified Code(s): H66.011 - Acute suppurative otitis media with spontaneous rupture of ear drum, right ear Pharyngitis Qualifiers: Pharyngitis/tonsillitis etiology: unspecified etiology Qualified Code(s): J02.9 - Acute pharyngitis, unspecified Condition: Good Disposition: HOME, SELF-CARE Instructions: Acetaminophen Additional Instructions: Emergency department this evening for a middle ear infection of your right ear. You are given 1 dose of antibiotics that is compatible with breast-feeding. You are also given a dose of steroids that is compatible with breast-feeding. I gave you a prescription for azithromycin 250 mg that you should take 1 pill for the next 4 days starting later today. If you are unable to handle your secretions and cannot breathe, he develop severe intractable pain, pass out, or have any other concerns please merely return to the emergency department. Prescriptions: Azithromycin [Zithromax 250 mg Tablet] 250 mg PO DAILY #4 tablet Forms: Return to Work
[2018-11-03 01:47] VITALS: BP 127/88
== END 2018-11-03 01:47 | disposition home or self-care (01) ==
LOC: ER 18:51
DX: H66.011 Acute suppurative otitis media with spontaneous rupture of ear drum, right ear (principal); J02.9 Acute pharyngitis, unspecified; R13.10 Dysphagia, unspecified; H92.09 Otalgia, unspecified ear
CPT/HCPCS: 99283; 96372; 87070; 87880; 87804; J1100